=== PATIENT | female | born 1945 | race Caucasian/White ===

== ENCOUNTER 2020-03-08 19:30 | Inpatient (IN) | payer MEDICARE, OTHER ==
[~2020-03-08] VITALS: Ht 162.6 cm; Wt 81.7 kg
[~2020-03-08 19:30] MED LIST: ALBU90OI61 INH; AMLO10 PO; CALCA400CH PO; DEXA4 PO; HYDR1TAB94 PO; Hair, Skin & N1 EACH PO; LISI20 PO; METO10 PO; METO50 PO; NYST100000; Nicoderm Cq1 EAC1 TD; OLAN10 PO; SYMBICORT 80-10.2 GM INH; TIOT18 INH; XOLIDO118 ML TOP; ZOLP5 PO; Zofran8 MG PO
[2020-03-08 20:07] LABS: BASOPHILS ABSOLUTE AUTO 0.02 K/mm3 (0.00-0.23); BASOPHILS PERCENT AUTO 1 % (0-2); EOSINOPHILS PERCENT AUTO 0 % (0-6); Hematocrit 38.4 % (33.0-51.0); Hemoglobin 12.8 g/dL (11.5-16.0); IMMATURE GRAN ABSOLUTE AUTO 0.01 K/mm3 (0.00-0.10); IMMATURE GRAN PERCENT AUTO 0 % (0-1); LYMPHOCYTES PERCENT AUTO 32 % (21-46); MONOCYTES ABSOLUTE AUTO 0.37 K/mm3 (0.16-1.47); MONOCYTES PERCENT AUTO 10 % (4-13); Mean Corpuscular HGB 30.7 pg (26.0-34.0); Mean Corpuscular HGB Conc 33.3 g/dL (31.5-36.5); Mean Corpuscular Volume 92 fL (80-100); Mean Platelet Volume 10.9 fL (9.1-12.4); NEUTROPHILS ABSOLUTE AUTO 2.11 K/mm3 (1.96-9.15); NEUTROPHILS PERCENT AUTO 57 % (41-73); Platelet Count 98 K/mm3 (150-400); RDW Coefficient Variation 13.5 % (11.7-14.2); RDW Standard Deviation 46.5 fL (35.1-46.3); Red Blood Cell Count 4.17 M/mm3 (3.80-5.20); White Blood Cell Count 3.71 K/mm3 (4.00-11.30)
[2020-03-08 20:24] LABS: Albumin, Blood 3.3 g/dL (3.4-5.0); Albumin/Globulin Ratio 0.9 (0.8-1.8); Bilirubin, Total 0.4 mg/dL (0.1-1.0); Bun/Creatinine Ratio 19.5 (12.0-20.0); Calcium, Blood 8.5 mg/dL (8.5-10.1); Creatinine, Blood 1.23 mg/dL (0.40-1.00); Globulin, Blood 3.7 g/dL (2.2-4.0); Potassium, Blood 3.7 mmol/L (3.5-5.5)
[2020-03-08 21:57] LABS: Source, Urine Clean Catch
[2020-03-08 22:01] LABS: Bilirubin, Urine Neg (Neg); Blood, Urine 4+ (Neg); Glucose Qualitative, Urine Neg (Neg); Ketones, Urine 2+ (Neg); Leukocyte Esterase, Urine Neg (Neg); Nitrite, Urine Neg (Neg); Protein, Urine 2+ (Neg); Urobilinogen, Urine NORM (Normal)
[2020-03-08 22:04] LABS: Appearance, Urine Clear (Clear); Color, Urine Yellow (P-Yellow)
[2020-03-08 22:08] LABS: Red Blood Cells, Urine 0-2 /hpf (0-2); White Blood Cells, Urine 0-2 /hpf (0-5)
[2020-03-08 22:09] LABS: Amorphous Light (0-Heavy); Bacteria Few /hpf; Squamous Epithelial Cells Rare /hpf (Few)
[2020-03-08 22:29] LABS: Adenovirus Not Detected (NOT DETECT); Bordetella pertussis Not Detected (NOT DETECT); Chlamydophila pneumoniae Not Detected (NOT DETECT); Coronavirus 229E Not Detected (NOT DETECT); Coronavirus HKU1 Not Detected (NOT DETECT); Coronavirus NL63 Not Detected (NOT DETECT); Coronavirus OC43 Not Detected (NOT DETECT); Human Metapneumovirus Not Detected (NOT DETECT); Human Rhinovirus/Enterovirus Not Detected (NOT DETECT); Influenza A/2009-H1 Not Detected (NOT DETECT); Influenza A/H1 Not Detected (NOT DETECT); Influenza A/H3 Not Detected (NOT DETECT); Influenza B Not Detected (NOT DETECT); Mycoplasma pneumoniae Not Detected (NOT DETECT); Parainfluenza Virus 1 Not Detected (NOT DETECT); Parainfluenza Virus 2 Not Detected (NOT DETECT); Parainfluenza Virus 3 Not Detected (NOT DETECT); Parainfluenza Virus 4 Not Detected (NOT DETECT); Respiratory Syncytial Virus Not Detected (NOT DETECT); SARS-Cov-2 (COVID-19), BioFire Detected (NOT DETECT)
--- NOTE | 2020-03-09 04:21 | NUR ---
MOBILE APPLICATION DEVELOPMENT LEAD SUMMARY A/OX2. DROPLET PRECAUTIONS IN PLACE FOR COVID. PT SEEMS PLEASANTLY CONFUSED. CURRENTLY ON ROOM AIR. HAS APPEARED TO SLEEP SINCE ADMISSION. VSS. NO ACUTE DISTRESS AT THIS TIME. BED IN LOWEST POSITION WITH CALL LIGHT IN REACH. WILL CONTINUE TO MONITOR AND REPORT TO ONCOMING RN.
[2020-03-09 05:50] LABS: BASOPHILS ABSOLUTE AUTO 0.01 K/mm3 (0.00-0.23); BASOPHILS PERCENT AUTO 0 % (0-2); EOSINOPHILS PERCENT AUTO 0 % (0-6); Hematocrit 39.4 % (33.0-51.0); IMMATURE GRAN ABSOLUTE AUTO 0.01 K/mm3 (0.00-0.10); IMMATURE GRAN PERCENT AUTO 0 % (0-1); LYMPHOCYTES ABSOLUTE AUTO 1.04 K/mm3 (0.84-5.20); LYMPHOCYTES PERCENT AUTO 29 % (21-46); MONOCYTES ABSOLUTE AUTO 0.33 K/mm3 (0.16-1.47); MONOCYTES PERCENT AUTO 9 % (4-13); Mean Corpuscular HGB 30.4 pg (26.0-34.0); Mean Corpuscular Volume 92 fL (80-100); Mean Platelet Volume 10.3 fL (9.1-12.4); NEUTROPHILS ABSOLUTE AUTO 2.25 K/mm3 (1.96-9.15); NEUTROPHILS PERCENT AUTO 62 % (41-73); Platelet Count 102 K/mm3 (150-400); RDW Coefficient Variation 13.6 % (11.7-14.2); RDW Standard Deviation 46.2 fL (35.1-46.3); Red Blood Cell Count 4.28 M/mm3 (3.80-5.20); White Blood Cell Count 3.64 K/mm3 (4.00-11.30)
[2020-03-09 06:06] LABS: Albumin, Blood 3.3 g/dL (3.4-5.0); Albumin/Globulin Ratio 0.9 (0.8-1.8); Bilirubin, Total 0.4 mg/dL (0.1-1.0); Bun/Creatinine Ratio 21.8 (12.0-20.0); Calcium, Blood 8.2 mg/dL (8.5-10.1); Creatinine, Blood 1.01 mg/dL (0.40-1.00); Globulin, Blood 3.5 g/dL (2.2-4.0); Potassium, Blood 3.9 mmol/L (3.5-5.5); Total Protein, Blood 6.8 g/dL (6.4-8.2)
--- NOTE | 2020-03-09 08:01 | NUR ---
PATIENT WITH TEMP 102.2, SHAKING CHILLS. DENIES PAIN AT THIS TIME. NO ACTIVWE ORDER FOR TYLENOL. CALLED DR. EDGAR TO NOTIFY OF TMEP AND ORDER FOR TYLENOL. NO ANSWER, LEFT VM.
[2020-03-09] MEDS ORDERED: LETR2.5 PO (11:57)
--- NOTE | 2020-03-09 15:48 | NUR ---
ASSUMED CARE OF PATIENT UPON HER ARRIVAL FROM PCU AT 1435. PT IS A&O X 4, PORTER. STATED PAIN AND ANXIETY ARE WELL CONTROLLED AT THIS TIME, HAD JUST TAKEN MEDICATIONS PRIOR TO TRANSFER. SON IS AT BEDSIDE; THEY ARE DISCUSSING HOSPICE PREPARATIONS. OFFERED WARM WARSHCLOTH TO WASH HER FACE AND GAVE HER ORAL CARE SUPPLIES. STATED SHE IS COMFORTABLE AT THIS TIME.
--- NOTE | 2020-03-09 19:50 | NUR ---
SHIFT SUMMARY: T MAX 103.3, TYLENOL PARTIALLY EFFECTIVE. BLOOD CULTURES X 2 DRAWN THIS EVENING. A&O X 2, INTERMITTENT CONFUSION, VERY [place]. NO EVENTS ON TELEMETRY, SR-ST 70-105. INSURANCE LOSS ADJUSTER, OCCASIONAL COUGH. COMPLETED IVF. CONTINENT/INCONTINENT OF B&B, WEARING ATTENDS. APPETITE POOR, TAKING < 50% OF MEALS, NEEDS ENCOURAGEMENT TO TAKE PO FLUIDS. DENIED PAIN. DAUGHTER IS ARRIVING FROM [place], WILL VISIT IN THE MORNING. SPOKE TO HER ON THE PHONE EARLIER TODAY, SHE HAD MANY QUESTIONS ABOUT TREATMENT. SHE WILL NEED SENIOR RESOURCES TO GET PT EXTRA HELP AT HOME.
[2020-03-10 05:45] LABS: BASOPHILS ABSOLUTE AUTO 0.01 K/mm3 (0.00-0.23); BASOPHILS PERCENT AUTO 0 % (0-2); EOSINOPHILS PERCENT AUTO 0 % (0-6); Hemoglobin 11.8 g/dL (11.5-16.0); IMMATURE GRAN ABSOLUTE AUTO 0.01 K/mm3 (0.00-0.10); IMMATURE GRAN PERCENT AUTO 0 % (0-1); LYMPHOCYTES ABSOLUTE AUTO 0.45 K/mm3 (0.84-5.20); LYMPHOCYTES PERCENT AUTO 14 % (21-46); MONOCYTES ABSOLUTE AUTO 0.11 K/mm3 (0.16-1.47); MONOCYTES PERCENT AUTO 4 % (4-13); Mean Corpuscular HGB 30.4 pg (26.0-34.0); Mean Corpuscular HGB Conc 33.7 g/dL (31.5-36.5); Mean Corpuscular Volume 90 fL (80-100); Mean Platelet Volume 10.8 fL (9.1-12.4); NEUTROPHILS ABSOLUTE AUTO 2.57 K/mm3 (1.96-9.15); NEUTROPHILS PERCENT AUTO 82 % (41-73); Platelet Count 90 K/mm3 (150-400); RDW Coefficient Variation 13.3 % (11.7-14.2); RDW Standard Deviation 44.3 fL (35.1-46.3); Red Blood Cell Count 3.88 M/mm3 (3.80-5.20); White Blood Cell Count 3.15 K/mm3 (4.00-11.30)
[2020-03-10 06:02] LABS: Bun/Creatinine Ratio 18.9 (12.0-20.0); Calcium, Blood 7.9 mg/dL (8.5-10.1); Creatinine, Blood 1.06 mg/dL (0.40-1.00); Potassium, Blood 3.7 mmol/L (3.5-5.5)
--- NOTE | 2020-03-10 06:26 | NUR ---
BASKETBALLS AND FOOTBALLS REVERSER SUMMARY Patient had a difficult time sleeping overnight. Most of her night was spent with shaking chills. Even when her temp dropped to 99.3F. Most of night however, she battled temps from 99.9 to 102.9. In addition to toradol dose at 1830, She was given APAP at 2330, Toradol around 0420 with minimal change from 102.9 to 102.6. Raymond was removed and patient encouraged to drink water. No complaints of pain or discomfort overnight other that chills. Blood cultures still outstanding.
--- NOTE | 2020-03-10 15:02 | NUR ---
GAVE PATIENT TYLENOL AT 1449 PATIENT IS SHAKING, HAS A FEVER OF 102.9 AND NOT FEELING WELL. SHE IS SHAKING SO BAD IT IS HARD TO GET A TEMP ON HER. I DID STRIP HER BLANKETS AND GIVE HER SOME WATER. SHE ALSO HAS HER ORAL CONTRAST TO DRINK. WILL MONITOR CLOSELY.
--- NOTE | 2020-03-10 18:09 | NUR ---
SHIFT SUMMARY PATIENT IS ALERT TO SELF AND PLACE. SHE DOES NOT UNDERSTAND WHY SHE IS ON OXYGEN EVEN THOUGH SHE IS HYPOXIC. SHE IS CURRENTLY RUNNING ON 2L AT 90%. WE ARE ABOUT TO TURN HER OXYGEN TO 3L TO GET HER TO 92% PER DOCTORS ORDERS. SHE IS TO HAVE A CT OF HEAD, ABDOMEN, PELVIS. SHE IS REFUSING TO DRINK THE REST OF HER CONTRAST. I AM AWAITING TO HEARD BACK FROM CT. SHE STATES THAT SHE IS DOING OKAY. SHE STATES SHE IS NOT SHORT OF BREATH EVEN THOUGH SHE HAS LOW SATURATIONS. SHE ALSO STATES THAT SHE IS NOT SHORT OF BREATH WHEN HER RESPIRATION RATE INCREASES. SHE HAS FOUGHT A HIGH FEVER ALL DAY TODAY AND THERE IS A BOTTLE OF IV LABETALOL IN HER ROOM. HER BLOOD PRESSURE WAS TOO LOW TO SAFELY GIVE HER BP MEDICATIONS. SHE HAS NOW HAD THEM ADJUSTED AND SHE WILL GET THE NEW REGIMEN IN THE MORNING. SHE IS NOW ON ANTIBIOTICS AND WAS GIVEN A NEW IV TODAY DUE TO HERS INFILTRATING. SHE HAS A 20G IN THE R FOREARM, AND THIS IS CONNECTED TO CONTINUOUS FLUIDS. SHE IS ON NORMAL SALINE AT 75 AN HOUR.
--- NOTE | 2020-03-10 19:20 | NUR ---
Notified Sandra in [place] that patient was ready to be picked up.
[2020-03-11 00:06] LABS: ADENOVIRUS F 40/41 Not Detected (Not Detected); ASTROVIRUS Not Detected (Not Detected); C DIFFICILE TOXIN A/B Not Detected (Not Detected); CAMPYLOBACTER Not Detected (Not Detected); CRYPTOSPORIDIUM Not Detected (Not Detected); CYCLOSPORA CAYETANENSIS Not Detected (Not Detected); ENTAMOEBA HISTOLYTICA Not Detected (Not Detected); ENTEROAGGREGATIVE E COLI Not Detected (Not Detected); ENTEROPATHOGENIC E COLI Detected (Not Detected); ENTEROTOXIGENIC E COLI Not Detected (Not Detected); GIARDIA LAMBLIA Not Detected (Not Detected); NOROVIRUS GI/GII Not Detected (Not Detected); PLESIOMONAS SHIGELLOIDES Not Detected (Not Detected); ROTAVIRUS A Not Detected (Not Detected); SALMONELLA Not Detected (Not Detected); SAPOVIRUS Not Detected (Not Detected); SHIGA-TOXIN-PRODUCING E COLI Not Detected (Not Detected); SHIGELLA/ENTEROINVASIVE E COLI Not Detected (Not Detected); VIBRIO Not Detected (Not Detected); VIBRIO CHOLERAE Not Detected (Not Detected); YERSINIA ENTEROCOLITICA Not Detected (Not Detected)
--- NOTE | 2020-03-11 02:11 | NUR ---
Patient temp back up to 103.5. Again, she is shaking uncontrollably. HR sustaining 115-120's. Blood pressure is actually more stable currently than yesteray day shift or evening. notified. Patient tolerating ice packs and was given norco (with tylenol) as well as 10 mg labetolol. New order from for Toradol and one time ibuprophen. will continue close monitoring
[2020-03-11 06:02] LABS: BASOPHILS ABSOLUTE AUTO 0.01 K/mm3 (0.00-0.23); BASOPHILS PERCENT AUTO 0 % (0-2); EOSINOPHILS PERCENT AUTO 0 % (0-6); Hematocrit 36.5 % (33.0-51.0); Hemoglobin 12.1 g/dL (11.5-16.0); IMMATURE GRAN ABSOLUTE AUTO 0.04 K/mm3 (0.00-0.10); IMMATURE GRAN PERCENT AUTO 1 % (0-1); LYMPHOCYTES PERCENT AUTO 9 % (21-46); MONOCYTES ABSOLUTE AUTO 0.11 K/mm3 (0.16-1.47); MONOCYTES PERCENT AUTO 3 % (4-13); Mean Corpuscular HGB 30.6 pg (26.0-34.0); Mean Corpuscular HGB Conc 33.2 g/dL (31.5-36.5); Mean Corpuscular Volume 92 fL (80-100); Mean Platelet Volume 10.9 fL (9.1-12.4); NEUTROPHILS ABSOLUTE AUTO 3.69 K/mm3 (1.96-9.15); NEUTROPHILS PERCENT AUTO 87 % (41-73); Platelet Count 101 K/mm3 (150-400); RDW Coefficient Variation 13.7 % (11.7-14.2); RDW Standard Deviation 46.8 fL (35.1-46.3); Red Blood Cell Count 3.96 M/mm3 (3.80-5.20); White Blood Cell Count 4.25 K/mm3 (4.00-11.30)
[2020-03-11 06:27] LABS: Albumin, Blood 2.5 g/dL (3.4-5.0); Albumin/Globulin Ratio 0.7 (0.8-1.8); Bilirubin, Total 0.4 mg/dL (0.1-1.0); Bun/Creatinine Ratio 19.4 (12.0-20.0); Calcium, Blood 7.6 mg/dL (8.5-10.1); Creatinine, Blood 1.08 mg/dL (0.40-1.00); Globulin, Blood 3.7 g/dL (2.2-4.0); Potassium, Blood 4.1 mmol/L (3.5-5.5); Total Protein, Blood 6.2 g/dL (6.4-8.2)
--- NOTE | 2020-03-11 09:23 | NUR ---
PATIENT ALERT AND ORIENTED. SATS 88-91% ON 7L NC. PT SITTING UP AT [address] EDGAR NOTIFIED OF INCREASED O2 NEEDS OVERNIGHT. ORDERS RECIEVED. TXFR TO ICU IN PROGRESS. LASIX GIVEN.
--- NOTE | 2020-03-11 09:58 | NUR ---
SBAR REPORT TO CHER LO IN ICU
--- NOTE | 2020-03-11 10:42 | NUR ---
PT ADMITTED TO ICU PCU STATUS PT FROM [facility] FOR INCREASING 02 NEEDS 2ND TO COVID 19. PT ARRIVES AWAKE, FLAT AFFECT. ORIENTED X3 BUT SLOW TO ANSWER QUESTIONS. PT DENIES C/O PAIN, DENIES SOB. SATS 90% ON 7L VIA OXYMIZER. FINE CRACKLES TO BASES, DIM, CLEAR OTHERWISE. PT [place], LEFT SIDE WORSE. BP SLIGHTLY HYPOTENSIVE AT 98/60 W MAP 77; PT WAS GIVEN LASIX THIS AM FOR SOME FLUID OVERLOAD BY EVIDENCE ON CT. PT IS AFEBRILE BUT WARM TO THE TOUCH. DR ROUSE CONSULTED; DR ESPINAL.
--- NOTE | 2020-03-11 12:50 | NUR ---
PT WATCHING TV W/O COMPLAINTS. O2 INCREASED TO 9L FOR SATS 88-90%. PT DENIES SOB. DR ROUSE UPDATED; PT TO BE PLACED ON HIGH VIN IF AVAILABLE. WILL ATTEMPT MODIFIED PRONE POSITION IF PT TOLERATES. PT REFUSED LUNCH BUT IS DRINKING DECAF COFFEE AND WATER W/O INCIDENT.
--- NOTE | 2020-03-11 15:03 | NUR ---
PT CHANGED TO HIGH VIN O2 AT 25L 50%FIO2. PT ABLE TO REQUEST BEDPAN TO VOID. PT CONT TO WATCH TV W/O COMPLAINTS. PT DOES DESATURATE WHILE SPEAKING DOWN TO 88%. PT'S DAUGHTER GIVEN UPDATE W PT'S PERMISSION.
--- NOTE | 2020-03-11 16:27 | NUR ---
PT DRINKS SOCIALLY AT THE BAR "[id number]" REGULARLY. PT STATES SHE DRINKS AT HOME BUT AVOIDED/EVADED ANSWERING TO WHAT DEGREE SHE DRINKS AT HOME. SHE DID STATE THAT SHE DRINKS [employer] (BEER W [employer]OM[employer]). DR ROUSE UPDATED. PT STATES THAT SHE WENT TO THE BAR ON THU, WENT AGAIN ON THURSDAY, AND STARTED TO FEEL SICK THURSDAY. SHE THEN STATED THAT SHE HAD DIARRHEA AND NAUSEA FROM THEN ON. HER DAUGHTER CALLED TO CHECK ON HER FROM [place] AND CALLED 911 AFTER DISCOVERING THAT SHE WAS SICK.
--- NOTE | 2020-03-11 19:45 | NUR ---
ATTEMPTED POWERGLIDE TO KLEBER, UNABLE TO PLACE. PT W SEVERE UPPER EXT TREMORS. DR EDGAR CALLED AND NOTIFIED. CIWA PROTOCOL ORDERED. O2 REQUIREMENTS UNCHANGED. PT WITH POOR APPETITE BUT DRINKING SUFFICIANT LIQUIDS.
--- NOTE | 2020-03-11 19:45 | NUR ---
SHIFT ASSESSMENT PT A&OX4, AT TIMES DIFFICULT TO UNDERSTAND/ SLOW TO RESPOND. ON AIRVO CURRENTLY c O2 SATS RANGING FROM 88-92%. LS DIMINISHED THROUGHOUT. DOES NOT C/O SHORTNESS OF BREATH. SINUS/SINUS TACH ON THE RAILROAD EMERGENCY SERVICES MANAGER. BP STABLE. BEDPAN PROVIDED, PT COULD NOT VOID, BECAME EXTREMELY SHORT OF BREATH, SATS DECREASED TO THE LOW 70'S WHILE TURNING TO PLACE BEDPAN. WILL CONTINUE TO MONITOR CLOSELY.
[2020-03-11 23:34] LABS: Source, Urine Catheter
[2020-03-11 23:49] LABS: Bilirubin, Urine Neg (Neg); Blood, Urine 4+ (Neg); Glucose Qualitative, Urine Neg (Neg); Ketones, Urine 3+ (Neg); Leukocyte Esterase, Urine Neg (Neg); Nitrite, Urine Neg (Neg); Protein, Urine 3+ (Neg); Specific Gravity, Urine 1.015 (1.003-1.022); Urobilinogen, Urine NORM (Normal)
[2020-03-12 00:04] LABS: Appearance, Urine Clear (Clear); Color, Urine Yellow (P-Yellow)
[2020-03-12 00:05] LABS: Amorphous Light (0-Heavy); Bacteria Not Seen /hpf; Red Blood Cells, Urine Rare /hpf (0-2); Squamous Epithelial Cells Not Seen /hpf (Few); White Blood Cells, Urine Not Seen /hpf (0-5)
[2020-03-12 04:13] LABS: Hematocrit 35.9 % (33.0-51.0); Hemoglobin 11.7 g/dL (11.5-16.0); Mean Corpuscular HGB 29.4 pg (26.0-34.0); Mean Corpuscular HGB Conc 32.6 g/dL (31.5-36.5); Mean Corpuscular Volume 90 fL (80-100); Platelet Count 107 K/mm3 (150-400); RDW Coefficient Variation 13.6 % (11.7-14.2); RDW Standard Deviation 45.7 fL (35.1-46.3); Red Blood Cell Count 3.98 M/mm3 (3.80-5.20); White Blood Cell Count 4.04 K/mm3 (4.00-11.30)
[2020-03-12 04:32] LABS: Alanine Aminotransfer (ALT/SGP 23 U/L (12-78); Albumin, Blood 2.2 g/dL (3.4-5.0); Albumin/Globulin Ratio 0.6 (0.8-1.8); Alk Phos 33 U/L (50-136); Anion Gap 7 mmol/L (6-16); Aspartate Aminotrans (AST/SGOT 55 U/L (12-37); BAND PERCENT MAN 24 % (0-8); BASOPHILS PERCENT MAN 0 % (0-2); Bilirubin, Total 0.3 mg/dL (0.1-1.0); Blood Urea Nitrogen 22 mg/dL (8-24); Bun/Creatinine Ratio 25.1 (12.0-20.0); CO2, Blood 22 mmol/L (21-32); Calcium, Blood 7.5 mg/dL (8.5-10.1); Chloride, Blood 110 mmol/L (98-108); Creatinine, Blood 0.88 mg/dL (0.40-1.00); EOSINOPHILS PERCENT MAN 0 % (0-6); Globulin, Blood 3.6 g/dL (2.2-4.0); Glomerular Filtration Rate >60 (60-); Glucose, Blood 190 mg/dL (70-99); LYMPHOCYTES ABSOLUTE MAN 0.12 K/mm3 (0.84-5.20); LYMPHOCYTES PERCENT MAN 3 % (21-46); MONOCYTES ABSOLUTE MAN 0.08 K/mm3 (0.16-1.47); MONOCYTES PERCENT MAN 2 % (4-13); Magnesium, Blood 2.4 mg/dL (1.6-2.4); NEUTROPHILS ABSOLUTE MAN 3.83 K/mm3 (1.96-9.15); Phosphorus, Blood 1.5 mg/dL (2.5-4.9); Potassium, Blood 3.3 mmol/L (3.5-5.5); SEG NEUTROPHILS PERCENT MAN 71 % (41-73); Sodium, Blood 139 mmol/L (136-145); TOTAL CELLS COUNTED 100; Total Protein, Blood 5.8 g/dL (6.4-8.2)
--- NOTE | 2020-03-12 05:27 | NUR ---
SHIFT SUMMARY PT CONTINUES TO BE ALERT AND ORIENTED. SHE DID HAVE INTERMITTENT BOUTS OF MILD CONFUSION, BELIEVING IT WAS DAYTIME, BUT STILL KNEW YEAR, PLACE, AND NAME. PT ATTEMPTS TO ASSIST WHEN TURNING/ USING BEDPAN, QUICKLY BECOMES HYPOXIC. LS REMAIN DIMINISHED. AIRVO SETTINGS INCREASED TO 40L/72%FIO2 c 02 SATS IN LOW 90'S. SINUS/SINUS TACH WITH PVC'S T/O THE NIGHT. TEMP SERNA CATH DRAINING YELLOW URINE. TEMP INCREASED TO 103, TREATED c PRN TYLENOL. WILL CONTINUE TO MONITOR.
--- NOTE | 2020-03-12 08:20 | NUR ---
ASSESSMENT- PT AWAKE, ALERT, COOPERATIVE. VERY [place], SOME CONFUSION. ABLE TO STATE NAME, FOLLOW SOME DIRECTIONS, KNOWS SHE IS IN HOSPITAL. ON HIGH FLOW OXYGEN-DESATURATES TO 85% WITH ANY ACTIVITY. REFUSED TO PRONE POSITION BUT WAS ABLE TO REPOSITION TO HIGH LEFT SIDE AND IMPROVEMENT NOTED IN SATURATIONS. STATES NO APPETITE. IV KPHOS REPLACEMENT INFUSING. DR. EDGAR HERE-UPDATED. SINUS RHYTHM WITH PVCS. NO N/V. INCONTINENT OF LIQUID STOOL-SAMPLE SENT. LINEN CHANGE. ENHANCED PRECAUTIONS IN EFFECT.
--- NOTE | 2020-03-12 09:56 | NUR ---
DR LOZA HERE-ASSESSED PT. SATURATIONS IMPROVED WHEN LAYING ON SIDE. AERVO CHANGES.
--- NOTE | 2020-03-12 11:09 | NUR ---
PT'S DAUGHTER CALLED-UPDATED. REPOSITIONED PT, NEED TO INCREASE FI02 TO 65% TO MAINTAIN SATURATIONS. ABLE TO USE [employer] TO CALL GRANDDAUGHTER. LUNGS COARSE, CRACKLES BIBASILAR.OCCASIONAL COUGH
--- NOTE | 2020-03-12 12:35 | NUR ---
PT STOOD AT BEDSIDE WITH ASSISTANCE, MOVES WEAKLY, WALKED FEW STEPS, TRANSFER TO CHAIR. OXYGEN SATURATIONS DECREASED TO 84% WITH ACTIVITY, RECOVERED WITHIN MINUTES. ALSO TACHY WITH MOVEMENT-HEARTRATE UP TO 120'S. AWAKE, ABLE TO FOLLOW DIRECTIONS.
--- NOTE | 2020-03-12 14:26 | NUR ---
PT REMAINS UP IN CHAIR. POOR APPETITE, ASSISTED WITH MEAL BUT ONLY FEW BITES TAKEN, WAS ABLE TO DRINK ENSURE. TOLERATING HIGH FLOW OXYGEN. DR. LOZA HERE-UPDATED.
--- NOTE | 2020-03-12 14:44 | NUR ---
C/O BEING UNCOMFORTABLE IN CHAIR, ABLE TO STAND TO REPOSITION IN CHAIR, USED PILLOWS WITH IMPROVEMENT. OXYGEN SATURATIONS DECREASED TO 79% WITH BRIEF ACTIVITY, RECOVERED IN MINUTES. WATCHING TV, DENIES PAIN. STATES BREATHING IS EASIER
--- NOTE | 2020-03-12 15:59 | NUR ---
C/O HEADACHE, RX GIVEN. ASSISTED TO REPOSITION IN CHAIR. VSS
--- NOTE | 2020-03-12 17:50 | NUR ---
PT HAD PULLED AERVO FROM NOSE, STATES DOESN'T FEEL WELL. DIAPHORETIC, HYPOTENSIVE. OXYGEN SATURATIONS QUICKLY DECREASED TO 74%. USED LIFT TO TRANSFER TO BED. PT AWAKE, ALERT THRU EPISODE. VS IMPROVED WHEN BACK TO BED, SINUS RHYTHM. REPOSITIONED TO HIGH LEFT SIDE. UPDATE TO . WILL CONTINUE TO MONITOR. NOW TALKING ON PHONE WITH FAMILY
--- NOTE | 2020-03-12 18:33 | NUR ---
PT WITH STABLE VS. SLEEPING, RESPIRATIONS UNLABORED, TOLERATING AERVO AT 50 L/MIN 60% CONTINUE TO MONITOR
--- NOTE | 2020-03-12 20:10 | NUR ---
PATIENT REPOSITIONING SELF OFF OF PILLOWS FROM LEFT SIDE, BIOX DOWN TO 80% WITH THE EFFORT. PATIENT ASSISTED UP IN BED AND TO HER RIGHT SIDE, AIRVO IN PLACE SET AT 60L FIO2 80%. MOIST COUGH UNABLE TO PRODUCE SPUTUM. BIOX UP TO 93% WHILE RESTING. PATIENT INCONT OF LOOSE BROWN STOOL, DRY FLOW PAD CHANGED AND CREAM PLACED TO RED AREA ON BUTTOCKS. A&O X3 BUT HO-CHUNK.
[2020-03-13 04:56] LABS: BASOPHILS ABSOLUTE AUTO 0.01 K/mm3 (0.00-0.23); BASOPHILS PERCENT AUTO 0 % (0-2); EOSINOPHILS PERCENT AUTO 0 % (0-6); Hematocrit 33.4 % (33.0-51.0); Hemoglobin 11.5 g/dL (11.5-16.0); IMMATURE GRAN ABSOLUTE AUTO 0.04 K/mm3 (0.00-0.10); IMMATURE GRAN PERCENT AUTO 1 % (0-1); LYMPHOCYTES ABSOLUTE AUTO 0.54 K/mm3 (0.84-5.20); LYMPHOCYTES PERCENT AUTO 10 % (21-46); MONOCYTES PERCENT AUTO 4 % (4-13); Mean Corpuscular HGB 31.2 pg (26.0-34.0); Mean Corpuscular HGB Conc 34.4 g/dL (31.5-36.5); Mean Corpuscular Volume 91 fL (80-100); Mean Platelet Volume 10.8 fL (9.1-12.4); NEUTROPHILS ABSOLUTE AUTO 4.55 K/mm3 (1.96-9.15); NEUTROPHILS PERCENT AUTO 85 % (41-73); Platelet Count 148 K/mm3 (150-400); RDW Standard Deviation 46.7 fL (35.1-46.3); Red Blood Cell Count 3.69 M/mm3 (3.80-5.20); White Blood Cell Count 5.34 K/mm3 (4.00-11.30)
[2020-03-13 05:15] LABS: Anion Gap 5 mmol/L (6-16); Blood Urea Nitrogen 23 mg/dL (8-24); Bun/Creatinine Ratio 26.1 (12.0-20.0); CO2, Blood 25 mmol/L (21-32); Calcium, Blood 7.2 mg/dL (8.5-10.1); Chloride, Blood 112 mmol/L (98-108); Creatinine, Blood 0.88 mg/dL (0.40-1.00); Glomerular Filtration Rate >60 (60-); Glucose, Blood 173 mg/dL (70-99); Phosphorus, Blood 2.1 mg/dL (2.5-4.9); Potassium, Blood 3.7 mmol/L (3.5-5.5); Sodium, Blood 142 mmol/L (136-145)
--- NOTE | 2020-03-13 05:43 | NUR ---
SUMMARY PATIENT RESTING QUIETLY T/O NIGHT, WITH AIRVO IN PLACE SET AT 60L AND 80%. AWAKENS EASILY ASSISTING WITH REPOSITIONING. SOB WITH ACTIVITY WITH BIOX DOWN TO 86%, SLOWLY RECOVERING TO 93% WHILE SLEEPING. HARSH MOIST NONPRODUCTIVE COUGH CONTINUES. PATIENT INCONT OF LOOSE BROWN BM, IMODIUM GIVEN, STOOL FIRMER NIGHT HAS PROGRESSED. COVID ISOLATION CONTINUES WITH NEGATIVE PRESSURE ROOM INDICATOR SHOWING NEGATIVE PRESSURE TO ROOM.
--- NOTE | 2020-03-13 08:30 | NUR ---
ASSESSMENT- PT AWAKE, ALERT, COOPERATIVE. VERY [place], ABLE TO RESPOND APPROPRIATELY TO QUESTIONS. STATES BREATHING "SOMEWHAT" BETTER TODAY. HIGHER FLOW OXYGEN TO MAINTAIN SATURATIONS TODAY-ON AERVO 60L/MIN 80%. LUNGS COARSE WITH FAINT CRACKLES BIBASILAR. NSR. BP STABLE. PIV LAC INTACT, RIGHT UPPER ARM MIDLINE INTACT. ABDOMEN SOFT, NO N/V. STATES NOT HUNGRY. ENCOURAGED FOOD. UP TO CHAIR WITH TWO ASSIST, DID BETTER WITH TRANSFER TODAY. INCONTINENT SMALL AMOUNT LIQUID STOOL. PERICARE DONE, AREA REDDENED, TENDER. LOTION APPLIED. UO VIA SERNA. IV NS TKO, KPHOS REPLACEMENT.
[2020-03-13 12:00] LABS: ADENOVIRUS F 40/41 Not Detected (Not Detected); ASTROVIRUS Not Detected (Not Detected); C DIFFICILE TOXIN A/B Not Detected (Not Detected); CAMPYLOBACTER Not Detected (Not Detected); CRYPTOSPORIDIUM Not Detected (Not Detected); CYCLOSPORA CAYETANENSIS Not Detected (Not Detected); ENTAMOEBA HISTOLYTICA Not Detected (Not Detected); ENTEROAGGREGATIVE E COLI Not Detected (Not Detected); ENTEROPATHOGENIC E COLI Detected (Not Detected); ENTEROTOXIGENIC E COLI Not Detected (Not Detected); GIARDIA LAMBLIA Not Detected (Not Detected); NOROVIRUS GI/GII Not Detected (Not Detected); PLESIOMONAS SHIGELLOIDES Not Detected (Not Detected); ROTAVIRUS A Not Detected (Not Detected); SALMONELLA Not Detected (Not Detected); SAPOVIRUS Not Detected (Not Detected); SHIGA-TOXIN-PRODUCING E COLI Not Detected (Not Detected); SHIGELLA/ENTEROINVASIVE E COLI Not Detected (Not Detected); VIBRIO Not Detected (Not Detected); VIBRIO CHOLERAE Not Detected (Not Detected); YERSINIA ENTEROCOLITICA Not Detected (Not Detected)
--- NOTE | 2020-03-13 12:50 | NUR ---
PT UP IN CHAIR, ABLE TO STAND WITH WALKER AND CHANGED LINEN. STATES FEELING BETTER. OXYGEN LEVEL IMPROVED. DECREASED FI02 TO 70%
--- NOTE | 2020-03-13 18:15 | NUR ---
DR. LOZA HERE-UPDATED. PT WITH STABLE VS. REPOSITIONED. C/O RIGHT HIP PAIN-IMPROVED WITH TURN TO LEFT. TURNING SIDE TO SIDE HIGH LATERAL POSITION. SMALL AMOUNT LIQUID STOOL. REFUSED DINNER. NO N/V. STATES NO APPETITE. CONTINUE TO MONITOR. IV BANANA BAG INFUSING, POWER GLIDE, PIV INTACT.
--- NOTE | 2020-03-13 20:00 | NUR ---
PATIENT AWAKE WATCHING TV, C/O HIP PAIN. TYLENOL PO GIVEN. PATIENT ASSISTING WITH REPOSITIONING IN BED SOB AND BIOX DROPPING TO MOW 80'S WITH ACTIVITY. AIRVO IN PLACE 50 L AND FIO2 CHANGED FROM 55% TO 79% GOAL OF BIOX >86%. PATIENT CONTINUES TO HAVE OCCASIONAL INCONT OF LOOSE BROWN STOOL. CREAM PLACED TO REDNESS AROUND RECTAL AREA. COVID ISOLATION CONTINUES WITH NEGATIVE PRESSURE ROOM INDICATOR SHOWING NEGATIVE PRESSURE TO ROOM.
[2020-03-14 03:50] LABS: BASOPHILS PERCENT AUTO 0 % (0-2); EOSINOPHILS PERCENT AUTO 0 % (0-6); Hematocrit 34.8 % (33.0-51.0); Hemoglobin 11.8 g/dL (11.5-16.0); IMMATURE GRAN ABSOLUTE AUTO 0.05 K/mm3 (0.00-0.10); IMMATURE GRAN PERCENT AUTO 1 % (0-1); LYMPHOCYTES ABSOLUTE AUTO 0.62 K/mm3 (0.84-5.20); LYMPHOCYTES PERCENT AUTO 8 % (21-46); MONOCYTES PERCENT AUTO 4 % (4-13); Mean Corpuscular HGB 30.4 pg (26.0-34.0); Mean Corpuscular HGB Conc 33.9 g/dL (31.5-36.5); Mean Corpuscular Volume 90 fL (80-100); Mean Platelet Volume 10.2 fL (9.1-12.4); NEUTROPHILS ABSOLUTE AUTO 6.72 K/mm3 (1.96-9.15); NEUTROPHILS PERCENT AUTO 87 % (41-73); Platelet Count 182 K/mm3 (150-400); RDW Standard Deviation 45.5 fL (35.1-46.3); Red Blood Cell Count 3.88 M/mm3 (3.80-5.20); White Blood Cell Count 7.69 K/mm3 (4.00-11.30)
[2020-03-14 04:07] LABS: Anion Gap 6 mmol/L (6-16); Blood Urea Nitrogen 19 mg/dL (8-24); Bun/Creatinine Ratio 26.2 (12.0-20.0); CO2, Blood 25 mmol/L (21-32); Calcium, Blood 7.2 mg/dL (8.5-10.1); Chloride, Blood 110 mmol/L (98-108); Creatinine, Blood 0.73 mg/dL (0.40-1.00); Glomerular Filtration Rate >60 (60-); Glucose, Blood 159 mg/dL (70-99); Phosphorus, Blood 2.2 mg/dL (2.5-4.9); Potassium, Blood 3.8 mmol/L (3.5-5.5); Sodium, Blood 141 mmol/L (136-145)
--- NOTE | 2020-03-14 07:17 | NUR ---
SUMMARY PATIENT SLEEPING OFF AND ON T/O NIGHT. AIRVO IN PLACE 50L FIO2 89% PATIENT CONTINUES TO HAVE BIOX DROP TO LOW 80'S WITH ACTIVITY, WITH FAIRLY QUICK RECOVERY. PATIENT ASSISTING WITH REPOSITIONING IN BED T/O NIGHT. HARSH MOIST COUGH CONTINUES WITH NO SPUTUM. FREQUENT LOOSE BROWN STOOLS CONTINUES IMODIUM GIVEN ONCE DURING THE NIGHT.
--- NOTE | 2020-03-14 09:00 | NUR ---
ASSUMED CARE OF PT AT 0700. PT SLEEPING IN BED. SATS 89-90% ON 50L/89%. PT AWAKENS TO VOICE, ORIENTED X3. CIWA 0. PT HAD LARGE LIQUID STOOL; DARK GREEN. IMMODIUM GIVEN. PT ABLE TO USE BED TIMMONS. 2 PERSON ASSIST UP TO CHAIR. SATS DECREASED TO 80% W EXERTION. FIO2 INCREASED TEMP TO 93%, PT RECOVERED SATS BACK TO 88-90% WITHIN 5MIN OF REST. LUNGS ARE CLEAR T/O. PT HAS DRY/HARSH NON-PRODUCTIVE COUGH. PT DENIES C/O PAIN. PT UP IN CHAIR EATING BREAKFAST NOW. PT DESATURATES WITH EATING WELL DOWN TO 85%.
--- NOTE | 2020-03-14 12:09 | NUR ---
SATS STABLE 88-92% ON 50L/90%FIO2. PT W POOR APPETITE. REMAINS UP IN CHAIR WATCHING TV.
--- NOTE | 2020-03-14 13:39 | NUR ---
PT ASSISTED BACK TO BED, 2 SBA. SATS BRIEFLY DROPPED TO 80% DURING TRANSITION. PT STILL REQUIRES AIRVO 50L/90%FIO2 TO KEEP SATS 88%-92%. KPHOS 30MMOL STARTED
--- NOTE | 2020-03-14 18:37 | NUR ---
O2 REQUIREMENTS REMAIN THE SAME. GOOD U/O W LASIX. PT WATCHING TV W/O COMPLAINTS; DID STATE THAT SITTING IN THE CHAIR TODAY "REALLY WORE ME OUT".
--- NOTE | 2020-03-14 19:45 | NUR ---
SHIFT ASSESSMENT REPORT RECEIVED FROM CHER VELASQUEZ. PT A&OX4. CIWA SCORE CURRENTLY <4. SLEEPING UPON ASSESMENT, WAKES EASILY TO VERBAL STIMULI. NO COMPLAINTS AT THIS TIME, STATES HE IS READY TO GO HOME. VSS. WILL CONTINUE TO MONITOR.
--- NOTE | 2020-03-14 20:15 | NUR ---
SHIFT ASSESSMENT ASSUMED CARE OF PT @ 1900, REPORT RECV'D FROM EVA KWON. PT ALERT AND ORIENTED. SITTING UPRIGHT ON HER LEFT SIDE. ATTEMPTED TO MOVE THE BED INTO THE CHAIR POSITION, PT DID NOT TOLERATE DUE TO BEING EXTREMELY UNCOMFORTABLE. PT ADVISED OF THE NEED TO TAKE DEEP BREATHS, PT COMPLIED, WILL CONTINUE TO PRODUCT SAFETY TESTER PT WITH BREATHING DEEPLY. CURRENTLY ON AIRVO-50L/ 90% O2 WITH SATS RANGING FROM 88-94%. NSR c PVC'S ON THE MONITOR. BP STABLE. PT OFFERED FOOD/ DRINK, WAS NOT INTERESTED AT THIS TIME, STATED SHE WAS TIRED FROM BEING IN THE CHAIR.
[2020-03-15 03:56] LABS: Anion Gap 6 mmol/L (6-16); Blood Urea Nitrogen 17 mg/dL (8-24); Bun/Creatinine Ratio 23.4 (12.0-20.0); CO2, Blood 27 mmol/L (21-32); Calcium, Blood 7.1 mg/dL (8.5-10.1); Chloride, Blood 106 mmol/L (98-108); Creatinine, Blood 0.73 mg/dL (0.40-1.00); Glomerular Filtration Rate >60 (60-); Glucose, Blood 176 mg/dL (70-99); Phosphorus, Blood 2.5 mg/dL (2.5-4.9); Potassium, Blood 3.9 mmol/L (3.5-5.5); Sodium, Blood 139 mmol/L (136-145)
--- NOTE | 2020-03-15 05:42 | NUR ---
SHIFT SUMMARY PT ALERT, REMAINS ON AIRVO: 50L/ 90% c O2 SATS RANGING MID TO LOW 80'S UPON EXERTION DURING TURNS AND 88-94 AT REST. LS REMAIN DIMINISHED WITH FINE CRACKLES IN THE BASES. ONE SMALL LOOSE BOWEL MOVEMENT, TREATED WITH PRN ANTIDIARRHEAL. TEMP SERNA CATH PATENT, DRAINING TO GRAVITY. PT AFEBRILE T/O THE NIGHT. WILL CONTINUE TO MONITOR.
--- NOTE | 2020-03-15 08:43 | NUR ---
ASSUMED CARE OF PT AT 0700. PT AWAKE IN BED WATCHING TV. SATS 85-90% ON AIRVO AT 50L/90% FIO2. PT HAS FINE CRACKLES BILAT. PO LASIX GIVEN. PT STATES SHE DID NOT SLEEP WELL LAST NIGHT AND FEELS EXHAUSTED. PT DECLINES GETTING UP TO THE CHAIR AT THIS TIME. SATS ROUTINELY DIPING DOWN TO 85%. PT ENCOURAGED TO DEEP BREATH AND COUGH. FIO2 INCREASED TO 92%. PT PLACED IN HIGH FOWLERS FOR BREAKFAST. VERY POOR APPETITE. PO FLUID INTAKE HAS BEEN DOWN WELL. PT MAY REQUIRE BIPAP. WILL ENCOURAGE CHAIR LATER THIS AM USING LIFT TO CONSERVE PT'S ENERGY. PT DID NOT TOLERATE PRONE POSITION IN PAST BUT MAY ATTEMPT A MODIFIED PRONE TODAY IF SATS CONT TO FALL. DR LOZA IN UNIT; FULL UPDATE GIVEN. LASIX ORDERED; 20MG PO Q 6HRS.
--- NOTE | 2020-03-15 09:54 | NUR ---
PT INCONTINENT OF LIQUID STOOL. IMMODIUM GIVEN THIS AM. PT GIVEN BED BATH. PT ABLE TO ASSIST SOMEWHAT W TURNS. SATS DECREASED TO 85% W EXERTION. PT DECLINED TO BE PLACE UP TO CHAIR. HAITIAN YOGURT GIVEN PER PT REQUEST. DR LOZA AT BEDSIDE NOW.
--- NOTE | 2020-03-15 12:57 | NUR ---
PT IS IMPROVING SLIGHTLY FROM THIS AM. APPETITE HAS IMPROVED. O2 SATS AVERAGING >90% ON 50L/92%FIO2. PT PLACED IN CHAIR POSITION FOR LUNCH.
--- NOTE | 2020-03-15 18:20 | NUR ---
O2 SATS AVERAGING 90-93% ON AIRVO 50L/93%. AFEBRILE, BP, HEART RATE/RHYTHM STABLE. PT EATING LIGHT DINNER. PT DENIES COMPLAINTS, WATCHING GOLF ON TV.
--- NOTE | 2020-03-15 20:49 | NUR ---
SHIFT ASSESSMENT ASSUMED CARE OF PT @ 1900 FROM CHER VELASQUEZ. PT ALERT AND ORIENTED. SEEMS MORE ALERT THAN YESTERDAY. SITTING UPRIGHT IN BED c HER DINNER TRAY, PT DOES NOT SEEM INTERESTED IN EATING, STATED "THERE IS TOO MUCH FOOD". ATE A MINIMAL AMOUNT OF HER DINNER, MOSTLY JUST A FEW SMALL BITES OF ICE CREAM AND BERRIES. ASKED THE PT WHAT SHE PREFERS FOR DINNER, SHE DID NOT HAVE ANY SUGGESTIONS. PT TOLERATING WATER WELL. ON AIRVO @ 50L/ 91-93% c O2 SATS >88%, AVERAGING 90-92%. ON CASINO GAMING INSPECTOR, BP STABLE. SERNA CATH PATENT, DRAINING TO GRAVITY. PT HAS NO CONCERNS/ REQUESTS AT THIS TIME. WILL CONTINUE TO MONITOR.
[2020-03-16 03:55] LABS: Anion Gap 6 mmol/L (6-16); Blood Urea Nitrogen 22 mg/dL (8-24); CO2, Blood 30 mmol/L (21-32); Calcium, Blood 7.2 mg/dL (8.5-10.1); Chloride, Blood 102 mmol/L (98-108); Creatinine, Blood 0.79 mg/dL (0.40-1.00); Glomerular Filtration Rate >60 (60-); Glucose, Blood 176 mg/dL (70-99); Potassium, Blood 3.7 mmol/L (3.5-5.5); Sodium, Blood 138 mmol/L (136-145)
[2020-03-16 04:17] LABS: BASOPHILS ABSOLUTE AUTO 0.02 K/mm3 (0.00-0.23); BASOPHILS PERCENT AUTO 0 % (0-2); EOSINOPHILS PERCENT AUTO 0 % (0-6); Hematocrit 33.2 % (33.0-51.0); Hemoglobin 11.9 g/dL (11.5-16.0); Mean Corpuscular HGB 33.1 pg (26.0-34.0); Mean Corpuscular HGB Conc 35.8 g/dL (31.5-36.5); Mean Corpuscular Volume 92 fL (80-100); Mean Platelet Volume 10.2 fL (9.1-12.4); Platelet Count 208 K/mm3 (150-400); RDW Coefficient Variation 14.3 % (11.7-14.2); RDW Standard Deviation 44.8 fL (35.1-46.3); White Blood Cell Count 8.25 K/mm3 (4.00-11.30)
[2020-03-16 04:18] LABS: IMMATURE GRAN ABSOLUTE AUTO 0.22 K/mm3 (0.00-0.10); IMMATURE GRAN PERCENT AUTO 3 % (0-1); LYMPHOCYTES ABSOLUTE AUTO 0.67 K/mm3 (0.84-5.20); LYMPHOCYTES PERCENT AUTO 8 % (21-46); MONOCYTES ABSOLUTE AUTO 0.22 K/mm3 (0.16-1.47); MONOCYTES PERCENT AUTO 3 % (4-13); NEUTROPHILS ABSOLUTE AUTO 7.12 K/mm3 (1.96-9.15); NEUTROPHILS PERCENT AUTO 86 % (41-73)
--- NOTE | 2020-03-16 05:13 | NUR ---
SHIFT SUMMARY NO SIGNIFICANT CHANGES T/O THE NIGHT. PT REMAINS ON THE SAME SETTINGS ON THE AIRVO. SATS MAINTAINED 90-92%, EXCEPT DURING EXERTION WHILE TURNING WHEN THEY WOULD DROP TO THE MID 80'S. PT ABLE TO HELP WITH TURNS THIS AM, WHICH IS MUCH IMPROVED FROM THE PREVIOUS NIGHT/AM. WILL CONTINUE TO MONITOR.
--- NOTE | 2020-03-16 07:45 | NUR ---
ASSUMED CARE OF PT AT 0700. REPORT FROM MAINOR KWON. PT RESTING IN BED. A&OX 4. FOLLOWS SIMPLE COMMANDS. DENIES COMPLAINTS. STATES SHE IS FEELING BETTER. AIRVO IN PLACE, 50L FIO2 93%. O2 SATS MID 90'S WHEN AT REST. DECREASES TO MID 80'S c MINIMAL EXERTION. LUNGS CLEAR THROUGHOUT. NON PRODUCTIVE COUGH. PT P/W/D. BP STABLE. HR 100'S. SERNA IN PLACE, DRAINING CLEAR YELLOW URINE TO GRAVITY. PT ABLE TO SHIFT HIPS AND ASSIST c REPOSITIONING. DOES DESAT c EXERTION. POOR APPETITE. PT STATES SHE HAS NOT TOLERATED CHAIR PREVIOUSLY. WILL CONTINUE TO MONITOR.
--- NOTE | 2020-03-16 17:33 | NUR ---
SHIFT SUMMARY PT REMAINED ON AIRVO ENTIRE SHIFT, NO CHANGE IN SETTINGS, 50 L 92%. O2 SATS MID 90'S WHEN AT REST, DESAT TO HIGH 80'S c EXERTION. LUNGS DIMINISHED IN BASES. SPEAKING IN FULL SENTANCES. PT ABLE TO SHIFT HIPS AND ASSIST c REPOSITIONING. REDNESS NOTED TO PERIAREA, BARRIER CREAM APPLIED. NO BM THIS SHIFT, HELD IMODIUM. 1200 ML CLEAR YELLOW URINE OUT. SERNA PATENT, DRAINING TO GRAVITY. PT CONTINUES TO HAVE POOR APPETITE. ENCOURAGED PO INTAKE AND OFFER ALTERNATIVES. PT DECLINES MOST SUGGESTIONS. VSS. WILL CONTINUE TO MONITOR UNTIL REPORT TO ONCOMING NURSE.
--- NOTE | 2020-03-16 19:30 | NUR ---
ASSUMED CARE ASSUMED PT CARE. PT AWAKE AND ALERT SITTING UP WATCHING TV. ON HIGH FLOW N/C 55L, FIO2 93%. LUNG SOUNDS COARSE AND DIMINISHED. MAINTAINING SPO2 > 90%. PT REPOSITIONS SELF WITH ASSISTANCE. SERNA CATH DRAINING CLEAR YELLOW URINE. NO EDEMA NOTED TO LOWER EXTREMETIES.
[2020-03-17 04:34] LABS: Anion Gap 7 mmol/L (6-16); Blood Urea Nitrogen 27 mg/dL (8-24); Bun/Creatinine Ratio 34.3 (12.0-20.0); CO2, Blood 30 mmol/L (21-32); Calcium, Blood 7.4 mg/dL (8.5-10.1); Chloride, Blood 100 mmol/L (98-108); Creatinine, Blood 0.79 mg/dL (0.40-1.00); Glomerular Filtration Rate >60 (60-); Glucose, Blood 161 mg/dL (70-99); Magnesium, Blood 1.9 mg/dL (1.6-2.4); Phosphorus, Blood 3.3 mg/dL (2.5-4.9); Potassium, Blood 3.8 mmol/L (3.5-5.5); Sodium, Blood 137 mmol/L (136-145)
[2020-03-17 04:55] LABS: BASOPHILS ABSOLUTE AUTO 0.02 K/mm3 (0.00-0.23); BASOPHILS PERCENT AUTO 0 % (0-2); EOSINOPHILS ABSOLUTE AUTO 0.02 K/mm3 (0.00-0.68); EOSINOPHILS PERCENT AUTO 0 % (0-6); Hematocrit 33.2 % (33.0-51.0); Hemoglobin 12.4 g/dL (11.5-16.0); IMMATURE GRAN ABSOLUTE AUTO 0.29 K/mm3 (0.00-0.10); IMMATURE GRAN PERCENT AUTO 4 % (0-1); LYMPHOCYTES ABSOLUTE AUTO 0.49 K/mm3 (0.84-5.20); LYMPHOCYTES PERCENT AUTO 7 % (21-46); MONOCYTES ABSOLUTE AUTO 0.11 K/mm3 (0.16-1.47); MONOCYTES PERCENT AUTO 2 % (4-13); Mean Corpuscular HGB 35.8 pg (26.0-34.0); Mean Corpuscular HGB Conc 37.3 g/dL (31.5-36.5); Mean Corpuscular Volume 96 fL (80-100); Mean Platelet Volume 10.4 fL (9.1-12.4); NEUTROPHILS PERCENT AUTO 86 % (41-73); Platelet Count 226 K/mm3 (150-400); RDW Coefficient Variation 17.4 % (11.7-14.2); RDW Standard Deviation 45.1 fL (35.1-46.3); Red Blood Cell Count 3.46 M/mm3 (3.80-5.20); White Blood Cell Count 6.73 K/mm3 (4.00-11.30)
[2020-03-17 05:41] LABS: PCO2 Arterial 34.8 mmHg (35-45); PO2 Arterial 55.2 mmHg (80-100); pH Blood Arterial 7.54 (7.35-7.45)
--- NOTE | 2020-03-17 06:29 | NUR ---
PT REMAINS ON HIGH FLOW N/C. 55L FIO2 92%. PT SPO2 > 90%. PT'S SPO2 DECREASES TO 84-85% WITH ANY EXERTION BY PT. INCLUDING ASSIST WITH REPOSITION. PT. A&OX4. LUNG SOUNDS CLEAR BUT DIMINISHED. PT. TAKING MINIMAL SIPS OF WATER. SERNA CATH INTACT DRAINING CLEAR YELLOW URINE.
--- NOTE | 2020-03-17 08:30 | NUR ---
ASSUMED CARE OF PT AT 0700. REPORT FROM JAMES KWON. PT RESTING IN BED. A&O X4. FOLLOWS COMMANDS. ABLE TO ASSIST c TURNS AND ADL'S. AIRVO IN PLACE, 50L 92% FIO2. SATS MID 90'S, DESATS c EXERTION. PT ABLE TO SPEAK IN FULL SENTANCES. LUNGS DIMINISHED IN BASES. PT P/W/D. ABD ROUND, SOFT, NON TENDER. BT X 4. PT CONTINUES TO HAVE POOR APPETITE. ENCOURAGED PO INTAKE. SERNA IN PLACE, PATENT, DRAINING TO GRAVITY. LOOSE BM THIS AM IN BEDPAN. REDNESS TO PERIAREA. BARRIER CREAM APPLIED. POWERGLIDE TO RUE, DRESSING C/D/I. VSS. WILL CONTINUE TO MONITOR.
--- NOTE | 2020-03-17 17:36 | NUR ---
SHIFT SUMMARY PT REMAINS ON AIRVO ENTIRE SHIFT. ABLE TO TITRATE FIO2 TO 80%, 50L. O2 SATS REMAIN >95%. LUNGS CLEAR. DRY COUGH. PT CONTINUES TO BE A&OX 4. MG REPLACED THIS SHIFT. PLACED BED IN CHAIR POSITION, THIS IS WHEN SATS INCREASED AND FIO2 WAS TITRATED DOWN. BP STABLE. HR 90'S. SERNA PATENT AND DRAINING TO GRAVITY, 750 ML CLEAR YELLOW URINE OUT. LASIX D/C'D THIS SHIFT. AFEBRILE. WILL CONTINUE TO MONITOR UNTIL REPORT TO ONCOMING NURSE.
--- NOTE | 2020-03-17 19:27 | NUR ---
ASSUMED PT CARE PT SITTING UP IN BED WATCHING TV. A&OX4. REMAINS ON HIGHFLOW N/C 50 L, FIO2 80%. PT TO REMAIN 80% TONIGHT TILL AM 0700 TO TRY 70% FIO2 TOLERATED. LUNG SOUNDS CLEAR BUT DIMINISHED IN BASES. BOWEL TONED NORMAL THROUGHOUT. SERNA CATH IN PLACE, DRAINING CLEAR YELLOW URINE. NO SOB OR INCREASED WORK OF BREATHING AT THIS TIME.
[2020-03-18 04:16] LABS: Anion Gap 5 mmol/L (6-16); Blood Urea Nitrogen 32 mg/dL (8-24); Bun/Creatinine Ratio 41.8 (12.0-20.0); CO2, Blood 31 mmol/L (21-32); Calcium, Blood 7.6 mg/dL (8.5-10.1); Chloride, Blood 100 mmol/L (98-108); Creatinine, Blood 0.77 mg/dL (0.40-1.00); Glomerular Filtration Rate >60 (60-); Glucose, Blood 157 mg/dL (70-99); Potassium, Blood 3.7 mmol/L (3.5-5.5); Sodium, Blood 136 mmol/L (136-145)
[2020-03-18 04:42] LABS: BASOPHILS ABSOLUTE AUTO 0.01 K/mm3 (0.00-0.23); BASOPHILS PERCENT AUTO 0 % (0-2); EOSINOPHILS ABSOLUTE AUTO 0.03 K/mm3 (0.00-0.68); EOSINOPHILS PERCENT AUTO 1 % (0-6); Hematocrit 32.9 % (33.0-51.0); Hemoglobin 12.2 g/dL (11.5-16.0); IMMATURE GRAN ABSOLUTE AUTO 0.18 K/mm3 (0.00-0.10); IMMATURE GRAN PERCENT AUTO 3 % (0-1); LYMPHOCYTES ABSOLUTE AUTO 0.44 K/mm3 (0.84-5.20); LYMPHOCYTES PERCENT AUTO 7 % (21-46); MONOCYTES ABSOLUTE AUTO 0.15 K/mm3 (0.16-1.47); MONOCYTES PERCENT AUTO 2 % (4-13); Mean Corpuscular HGB 35.5 pg (26.0-34.0); Mean Corpuscular Volume 96 fL (80-100); Mean Platelet Volume 10.3 fL (9.1-12.4); NEUTROPHILS ABSOLUTE AUTO 5.55 K/mm3 (1.96-9.15); NEUTROPHILS PERCENT AUTO 87 % (41-73); Platelet Count 218 K/mm3 (150-400); RDW Coefficient Variation 16.3 % (11.7-14.2); RDW Standard Deviation 44.9 fL (35.1-46.3); Red Blood Cell Count 3.44 M/mm3 (3.80-5.20); White Blood Cell Count 6.36 K/mm3 (4.00-11.30)
[2020-03-18 04:43] LABS: Mean Corpuscular HGB Conc 37.1 g/dL (31.5-36.5)
[2020-03-18 05:21] LABS: PCO2 Arterial 38.4 mmHg (35-45); PO2 Arterial 58.6 mmHg (80-100); pH Blood Arterial 7.52 (7.35-7.45)
--- NOTE | 2020-03-18 05:43 | NUR ---
SHIFT SUMMARY PT CONTINUES ON HIGH FLOW NC. 50L AND 80% FIO2. PT. HAS TOLERATED WELL WITH 1 INCIDENCE OF LOW SPO2 TO 85% WITH REPOSITIONING. LUNG SOUNDS CLEAR AND DIMINISHED IN BASES. PT TAKING SMALL AMOUNTS OF PO FLUIDS. SERNA CATH DRAINING CLEAR YELLOW URINE. PT. DENIES PAIN OR DISCOMFORT. FIO2 TO DECREASE TO 70% AT 0700.
--- NOTE | 2020-03-18 06:50 | NUR ---
HIGH FLOW N/C FIO2 REDUCED TO 70% PER NURSE NOTIFY. PT SPO2 MAINTAINING > 90%. WORK OF BREATHING REMAINS UNCHANGED.
--- NOTE | 2020-03-18 07:16 | NUR ---
HIGH FLOW N/C REDUCED TO 70%, PT. UNABLE TO MAINTAIN SPO2> 80%. PT WORK OF BREATHING INCREASED. SPO2 INCREASED BACK TO 80%. PT SPO2 RETURNED TO > 90%.
--- NOTE | 2020-03-18 09:06 | NUR ---
Assumed care of pt at 0700. Bedside report received from Yannick KWON. Pt A&O x 4. Answers questions. Follows commands. Verbalizes needs. Pt on AirVO with 50 LPM flow and 80% FiO2. SpO2 90% or greater. Lungs coarse in all verduzco, diminished in bases. Dry, nonproductive cough. SR per monitor. BP stable. Stanton catheter in place for strict measurement of I&O. Pt incontinent of stool. Call light in reach. Pt denies need at this time.
--- NOTE | 2020-03-18 14:56 | NUR ---
Pt has been sitting up in chair since noon. At first, pt resistant to getting out of bed. At 1400, showed pt her SpO2 on the monitor, which was 97%. Pt excited and agreeable to staying sitting up in the chair. FiO2 on AIRVO decreased from 70% to 60%.
--- NOTE | 2020-03-18 19:28 | NUR ---
Pt back to bed, laying on stomach at this time. Per Dr Ye, pt to lay on stomach while sleeping as tolerated. Heart monitor stickers placed posteriorly for comfort while proning. Pt's bed rotated so she can easily see the television while proned. Pt's belongings in reach, as well as call light. AirVO settings 50 LPM flow and 50% FiO2. SpO2 90% or greater. SR per monitor. BP stable. Report given to Yannick KWON.
[2020-03-19 04:21] LABS: Anion Gap 7 mmol/L (6-16); Blood Urea Nitrogen 33 mg/dL (8-24); Bun/Creatinine Ratio 45.7 (12.0-20.0); CO2, Blood 29 mmol/L (21-32); Calcium, Blood 8.3 mg/dL (8.5-10.1); Chloride, Blood 100 mmol/L (98-108); Creatinine, Blood 0.72 mg/dL (0.40-1.00); Glomerular Filtration Rate >60 (60-); Glucose, Blood 136 mg/dL (70-99); Sodium, Blood 136 mmol/L (136-145)
[2020-03-19 04:41] LABS: BASOPHILS ABSOLUTE AUTO 0.02 K/mm3 (0.00-0.23); BASOPHILS PERCENT AUTO 0 % (0-2); EOSINOPHILS ABSOLUTE AUTO 0.06 K/mm3 (0.00-0.68); EOSINOPHILS PERCENT AUTO 1 % (0-6); Hematocrit 35.3 % (33.0-51.0); Hemoglobin 12.5 g/dL (11.5-16.0); IMMATURE GRAN ABSOLUTE AUTO 0.16 K/mm3 (0.00-0.10); IMMATURE GRAN PERCENT AUTO 2 % (0-1); LYMPHOCYTES ABSOLUTE AUTO 0.43 K/mm3 (0.84-5.20); LYMPHOCYTES PERCENT AUTO 5 % (21-46); MONOCYTES ABSOLUTE AUTO 0.19 K/mm3 (0.16-1.47); MONOCYTES PERCENT AUTO 2 % (4-13); Mean Corpuscular HGB 33.1 pg (26.0-34.0); Mean Corpuscular HGB Conc 35.4 g/dL (31.5-36.5); Mean Corpuscular Volume 93 fL (80-100); Mean Platelet Volume 10.1 fL (9.1-12.4); NEUTROPHILS ABSOLUTE AUTO 7.69 K/mm3 (1.96-9.15); NEUTROPHILS PERCENT AUTO 90 % (41-73); Platelet Count 236 K/mm3 (150-400); RDW Coefficient Variation 14.6 % (11.7-14.2); RDW Standard Deviation 44.7 fL (35.1-46.3); Red Blood Cell Count 3.78 M/mm3 (3.80-5.20); White Blood Cell Count 8.55 K/mm3 (4.00-11.30)
[2020-03-19 05:33] LABS: PCO2 Arterial 35.3 mmHg (35-45); PO2 Arterial 52.4 mmHg (80-100); pH Blood Arterial 7.54 (7.35-7.45)
--- NOTE | 2020-03-19 08:30 | NUR ---
ASSUMED CARE: REPORT RECEIVED FROM JAMES Cunningham RN. ASSUMED CARE OF THIS PT AT APPROX 0700. ON ASSESSMENT, THE PT IS RESTING QUIETLY. SHE IS REFUSING TO PRONE AT THIS TIME BUT O2 SATS IMPROVING W/ PT REPOSITIONED FAR ONTO R SIDE. LS ARE DIM IN BASES, PT ON AIRVO W/ SETTINGS: 50 L/MIN & 30% FIO2. MONITOR SHOWS SR W/ HR 80s, OCCASIONAL PVCs & PACs NOTED. BP STABLE. PT IS TOLERATING PO INTAKE WELL, CONTINUES HAVING LIQUID BROWN INCONTINENT STLS. TEMP SERNA PATENT/ DRAINING. SKIN CONDITION OVERALL CDI. WILL CONTINUE TO MONITOR & UPDATE NEEDED.
--- NOTE | 2020-03-19 11:10 | NUR ---
BED ASSIGNMENT: ROOM [id number] HAS BEEN ASSIGNED TO THIS PT FOR TX & THE PT IS AWARE OF THIS. REPORT HAS BEEN CALLED TO KOAML Caputo RN TO ASSUME CARE, AT 1105. ROOM IS CURRENTLY BEING CLEANED, SHE WILL NOTIFY THIS RN WHEN IT HAS BEEN COMPLETED & THE PT CAN BE TRANSFERRED.
--- NOTE | 2020-03-19 17:55 | NUR ---
SHIFT SUMMARY; ASSUMED CARE FROM ICU FOR INHOUSE TRANSFER. A/A/OX4, AIR VO AT 50L AT 40%. UP TO RECLINER FOR LUNCH WITH ASSISTANCE. PT EVAL TODAY, SERNA CATH IN PLACE DRAINING CLEAR YELLOW URINE. NO ACUTE CHANGES DURING SHIFT. WILL CONTINUE TO MONITOR AND TREAT UNTIL CHANGE OF SHIFT.
--- NOTE | 2020-03-20 04:27 | NUR ---
SHIFT SUMMARY PT A&Ox3 FOR MOST OF SHIFT. HAD SHORT EPISODE OF CONFUSION AT 0415. PULLED APART HI VIN O2 N/C, DESATED TO 72%. REPLACED HI VIN CANNULA QUICKLY AND SATS RETURNED TO 92%. CURRENT SETTINGS 45LPM, FIO2 48%. REORIENTED PT, SHORTNESS OF BREATH RESOLVED. OTHER THAN THIS EPISODE, PT HAD A RESTFUL NIGHT. REQUESTED PT TO PRONE EVERY 2 HRS, PT REFUSED EACH TIME. PT WOULD ONLY TURN ON RIGHT SIDE OR LEFT SIDE. DENIED CHEST PAIN, NO ACUTE ANXIETY. URINARY CATH PATENT WITH CLR YELLOW URINE. INCONT STOOL X3. PERIANAL AREA REMAINS EXCORIATED, CREAM APPLIED PRN. WILL CONTINUE TO MONITOR
--- NOTE | 2020-03-20 17:19 | NUR ---
SUMMARY PT SITTING UP IN BED WATCHING TV AND DRINKING COFFEE, PT HAS BEEN PLEASANT AND COOPERATIVE WITH CARE, FORGETFUL AT TIMES, REORIENTS EASILY, PT HAS WORKED WITH THERAPY AND WAS UP IN THE CHAIR, PT REMAINS ON THE AIRVO AT 45 LITERS AND 45% FIO2, NO COMPLAINTS, WILL CONT TO MONITOR
--- NOTE | 2020-03-20 21:12 | NUR ---
2002 74 Y/O FEMALE RESTING COMFORTABLY; DROPLET ISOLATION MAINTAINED FOR COVID19; HAPPY AND COOPERATIVE; DENIES PAIN OR NAUSEA; ALERT AND ORIENTED X 4.
--- NOTE | 2020-03-21 02:47 | NUR ---
SHIFT SUMMARY: 74 Y/O OBESE FEMALE RESTED COMFORTABLY LOW FOWLERS POSITION WHILE AIR FLOW AT 45% WITH O2 SATS AVERAGING 90%; DENIES PAIN OR NAUSEA; HAPPY AND COOPERATIVE; BED LOW POSITION WITH CALL LIGHT AT SIDE; TELEMETRY REFLECTS NSR PER JESUS--CORN CHIP MAKER; SERNA DRAINING CLEAR YELLOW FLUID; LUNG SOUNDS ARE DIMINISHED THROUGHOUT.
--- NOTE | 2020-03-21 11:02 | NUR ---
SPOKE WITH PT'S DAUGHTER PT CALLED DAUGHTER ANA THREATENING TO CALL PT ADVOCATE SHE FEELS THAT SHE IS BEING HELD AGAINST HER WILL. DAUGHTER EXPLAINED TO PT THAT SHE IS VERY SICK WHICH IS WHY SHE IS HOSPITALIZED. PT WAS CONFUSED WHEN THIS RN THIS AM FOR ASSESSMENT, ORIENTED TO PERSON AND PLACE ONLY
--- NOTE | 2020-03-21 18:18 | NUR ---
SHIFT NOTE PT HAS BEEN RESTING WELL ON AIRVO T/O THE SHIFT. REPORTS BREATHING HAS IMPROVED. DNEIES CP OR SOB THIS SHIFT. PT C/O "TAILBONE" PAIN WHICH WAS TREATED WITH TYLENOL. PT REMAINS SLIGHTLY CONFUSED BUT IS NOT IMPULSIVE. PT HAS CALLED DAUGHTER TODAY AND STATED THAT SHE WAS BEING HELD AGAINST HER WILL AND WANTED TO CALL THE PT ADVOCATE, DAUGHTER ENCOURAGED PT NOT TO CALL ADVOCATE AND REMINDED HER THAT SHE WAS NOT BEING HELD AGAINST HER WILL AND THAT SHE IS SICK. PT IS CALM AND COOPERATIVE AT THE TIME OF THIS NOTE AND IS ANSWERING QUESTIONS WELL, REMAINS A/O X2 AWARE OF PLACE AND SELF.
--- NOTE | 2020-03-22 05:39 | NUR ---
SHIFT SUMMARY NO ACUTE CHANGES THIS SHIFT. PT A&O X2. COULD STATE NAME, , AND WHERE SHE WAS. CONFUSED AT TIMES. VSS. SP02>90% ON 55L HEATED HUMID. HIFLOW NC, FI02 @ 45%. TELEMETRY READS WAP, HR 80'S-90'S. PT C/O OF SIATIC PAIN. MEDICATED PER EMAR. ENCOURAGED REPOSITIONING WITH NO SUCCESS. SERNA CATHETER DRAINING CLEAR YELLOW URINE. NO BM THIS SHIFT. POWERGLIDE FLUSHES NICELY, CAPS CHANGED THIS SHIFT. PT SLEPT T/O 2ND HALF OF SHIFT. CALL LIGHT IN REACH. WILL CONTINUE TO MONITOR.
--- NOTE | 2020-03-22 18:50 | NUR ---
SHIFT NOTE NO ACUTE CHANGES DURING THIS SHIFT. PT WAS REMOVED FROM AIRVO AND PLACED ON HIGH FLOW O2 AT 8L WHICH SHE IS TOLERATING WELL AT 92%. PT ALERT, CONFUSED. CONSULT HAS BEEN CALLED IN TO DR CHASE
--- NOTE | 2020-03-23 06:36 | NUR ---
SHIFT SUMMARY PATIENT ALERT AND ORIENTED. HAD NO COMPLAINTS OF PAIN OR SHORTNESS OF BREATH. PATIENT TITRATED DOWN FROM 8 TO 7 LITERS O2 VIA HIGH FLOW NASAL CANULA. PATIENT'S DAUGHTER CALLED AND REQUESTED TO SPEAK WITH A DELIVERY AGENT OR PHYSICIAN REGARDING THE PATIENT'S PROGNOSIS AND PLAN OF CARE LEADING TOWARDS DISCHARGE. IV PATENT AND FLUSHED. BED IN LOWEST POSITION WITH WHEELS LOCKED AND ALARM ON. CALL LIGHT WITHIN REACH. REPORT GIVEN TO ONCOMING RN.
--- NOTE | 2020-03-23 17:31 | NUR ---
SHIFT NOTE NO ACUTE CHANGES NOTED FOR THIS SHIFT. REPORTS BREATHING IS IMPROVING. REFUSES PRONING, REFUSES PT AND OT. PT APPEARS TO BE MORE ORIENTED TODAY. LS CLEAR AND DIM T/O. VSS. REMAINS ON 7L O2 VIA HIGH FLOW NC. ATTEMPTS WERE MADE BY THIS RN AND RT TO TITRATE O2 DOWN WITHOUT SUCCESS. DR CHASE WAS IN TO SEE PT TODAY, AFTER HIS ASSESSMENT HE SPOKE WITH MYSELF AND PT'S DAUGHTER, THE CONCLUSION WAS MADE BY DR CHAES THAT PT IS DEMENTED AND IS UNABLE TO MAKE HER OWN MEDICAL OR FINANCIAL DECISIONS, LUZ PEREZ IS SEEKING [employer] AT THIS TIME, SHE HAS PAPERWORK FOR [employer] SHE WILL BE CALLING ON THURSDAY TO SPEAK WITH SOCK MENDER FOR ASSISTANCE WITH PAPERWORK
--- NOTE | 2020-03-24 06:05 | NUR ---
SHIFT SUMMARY PT A&O TO SELF & FOLLOWING SOME INSTRUCTIONS, REQUIRING REMINDING/REDIRECTING AT TIMES. VSS. MONITOR SHOWS SR-ST, HR 90's-110. spo2 > 92% ON 7L HI-VIN NC. PT COCCYX & GROIN RED W/ 2 NOTED PRESSURE ULCERS TO COCCYX. WOUND PHOTOS TAKEN & PLACED IN CHART. Q2H REPOSITIONING PROVIDED. SERNA CATH PATENT & DRAINING.
--- NOTE | 2020-03-24 12:37 | NUR ---
AM ASSESSMENT PT IS A/O X2-3, STATE IMPROVED MENTATION, SHE DEMONSTRATES FORGETFULNESS, SEEMS INAJA. SHE STATE WEAKNESS/FATIGUE IMPROVING. COVID19+ SINCE 03/08/20, ID RN STATE PT WILL CONTINUE DROPLET ISO UNTIL 03/28/20, ISTRATE NOTIFIED. PHYTHER IN THIS AM, PT ASSISTED TO CHAIR FOR LUNCH, 1 ASSIST w FWW, GAIT STEADY. LUNGS CLEAR/DECREASED, SHE STATE NO SOB, O2 @ 7L HIFLO/HUMIDIFIED, BIOX 88-91%, RT GAVE NEB 0730. SERNA CATH CONTINUES, PATENT/DRNG CLEAR YELLOW URINE.
--- NOTE | 2020-03-24 16:02 | NUR ---
SUMMARY PT IS A/O X3 HOWEVER FORGETFUL, SHE HAD PSYCHE CONSULT YESTERDAY, DX DEMENTIA, DR SHELTON [address] [employer] PAPERS IN CHART. PT IS 15 DAYS POST COVID19+, SHE WILL CONTINUE IN DROPLET ISO UNTIL 03/24/20. PT STATE FEELING IMPROVED, STATE CONTINUING TIN CONTAINER STRAIGHTENER COUGH. DR YOUNGTRATE REQUEST TITRATE O2, RT ASSIST. PT TITRATED FROM 7L DOWN TO 4L, BIOX 93%, NO SOB @ REST. SHE HAS BEEN UP IN CHAIR w 1 ASSIST, HEALTH AND SAFETY DIRECTOR PROVIDE BEDBATH. VSS.
--- NOTE | 2020-03-24 18:56 | NUR ---
PT UP IN CHAIR FOR DINNER. BACK TO BED AFTER. CALL OR CONTACT CENTRE OPERATOR REPORT BIOX DROP TO 85%, O2 TITRATED UP TO 5L, 89% @ THIS TIME, PT STATE NO SOB, WILL MX.
--- NOTE | 2020-03-24 21:10 | NUR ---
CARE ASSUMPTION PT A&O X4, MORE INTERACTIVE THIS SHIFT. PT ANSWERING Q's MORE APPROPRIATELY DESPITE SOME CONFUSION SUCH PT REPORTING DATE TO BE "24 MARCH 1920" THEN LAUGHED & STATED "OH MY! 2019!" MONITOR SHOWS ST, HR 100-110. PT ON 5L NC W/ SPO2 IN GOAL RANGE OF 86-94% PER MD NURSE NOTIFY. PT DENIES SOB. WILL CONTINUE TO MONITOR & PROVIDE CARE.
[2020-03-25 04:53] LABS: BASOPHILS ABSOLUTE AUTO 0.02 K/mm3 (0.00-0.23); BASOPHILS PERCENT AUTO 0 % (0-2); EOSINOPHILS ABSOLUTE AUTO 0.07 K/mm3 (0.00-0.68); EOSINOPHILS PERCENT AUTO 1 % (0-6); Hematocrit 33.6 % (33.0-51.0); Hemoglobin 11.3 g/dL (11.5-16.0); IMMATURE GRAN ABSOLUTE AUTO 0.04 K/mm3 (0.00-0.10); IMMATURE GRAN PERCENT AUTO 1 % (0-1); LYMPHOCYTES ABSOLUTE AUTO 0.65 K/mm3 (0.84-5.20); LYMPHOCYTES PERCENT AUTO 11 % (21-46); MONOCYTES ABSOLUTE AUTO 0.25 K/mm3 (0.16-1.47); MONOCYTES PERCENT AUTO 4 % (4-13); Mean Corpuscular HGB Conc 33.6 g/dL (31.5-36.5); Mean Corpuscular Volume 92 fL (80-100); Mean Platelet Volume 9.9 fL (9.1-12.4); NEUTROPHILS ABSOLUTE AUTO 4.92 K/mm3 (1.96-9.15); NEUTROPHILS PERCENT AUTO 83 % (41-73); Platelet Count 162 K/mm3 (150-400); RDW Coefficient Variation 13.2 % (11.7-14.2); RDW Standard Deviation 43.5 fL (35.1-46.3); Red Blood Cell Count 3.64 M/mm3 (3.80-5.20); White Blood Cell Count 5.95 K/mm3 (4.00-11.30)
[2020-03-25 05:12] LABS: Anion Gap 5 mmol/L (6-16); Blood Urea Nitrogen 22 mg/dL (8-24); Bun/Creatinine Ratio 29.5 (12.0-20.0); CO2, Blood 26 mmol/L (21-32); Calcium, Blood 9.2 mg/dL (8.5-10.1); Chloride, Blood 107 mmol/L (98-108); Creatinine, Blood 0.75 mg/dL (0.40-1.00); Glomerular Filtration Rate >60 (60-); Glucose, Blood 101 mg/dL (70-99); Potassium, Blood 4.1 mmol/L (3.5-5.5); Sodium, Blood 138 mmol/L (136-145)
--- NOTE | 2020-03-25 06:10 | NUR ---
SHIFT SUMMARY PT CONTINUES TO BE A&O X4 W/ SOME FORGETFULNESS. MONITOR SHOWS SR-ST, HR 80's-110. PT ON 5L HI-VIN NC, TITRATED DOWN TO 4L THIS SHIFT W/ SPO2 IN GOAL RANGE OF 86-94% PER MD NURSE NOTIFY. PT COOPERATIVE W/ ALL CARE. PRESSURE ULCERS X2 NOTED TO COCCYX. PT REPOSITIONED Q2H.
--- NOTE | 2020-03-25 19:18 | NUR ---
SHIFT SUMMARY SHAMIR DENIED PAIN THIS SHIFT. UP WITH AO1 TO CHAIR/BSC. SERNA REMOVED AROUND 3PM, NO OUTPUT YET, PT DOESN'T FEEL URGE. REPORT TO NIGHT NURSE TO FOLLOW UP ON UO IN NEXT COUPLE HOURS. TELE DC'D. CONT PULSE OX SHOWS 88-92 ON 4L OXYGEN. AT ONE POINT HAD TO BUMP TO 8L WITH EXERTION OF GETTING UP TO CHAIR. RED RASH ON BACK AND BUTTOCKS, BENADRYL CREAM APPLIED AND STEROID CREAM ORDERED PER DR MYLES. NYSTATIN APPLIED TO YEAST UNDER ABD FOLDS. TOOK MEDS PRESCRIBED, WCTM
--- NOTE | 2020-03-26 04:35 | NUR ---
SHIFT SUMMARY PT IS ALERT AND ORIENTED, SHOWS MILD CONFUSION AT TIMES BUT IS OVERALL AAOX4. VITALS WERE STABLE WITH BP 103-117 SYSTOLIC, HR 80-90'S. PT ON 4LPM VIA NC AND RESTING WITH O2 SATS IN THE LOW 90'S AND LITTLE CHANGE WHEN PT MOVING AROUND IN BED. SKIN ON BACK SHOWED A RASH, PT STATSED NO DISCOMFORT, ORDERED MEDICATION WAS APPLIED. GRAHAM AREA BACK TO BUTTOCKS WAS REDDENED WITH PEELING SKIN, POWDER AND MEDICATION WAS APPLIED. PT OTHERWISE WAS PLEASENT AND COOPERATIVE WITH CARE WITH AN UNEVENTFUL NIGHT.
--- NOTE | 2020-03-26 17:31 | NUR ---
NO ACUTE EVENTS THIS SHIFT. PATIENT ABLE TO AMBULATE TO BEDSIDE COMMODE AND IN SHOWER WITH STANDBY ASSIST. PATIENT ON 4 L NASAL CANNULA, MAINTAINING O2 SATS IN LOW 90S, O2 LEVEL WILL DECREASE TO HIGH 80S WITH COUGHING FIT. PATIENT HAS RASH ON BACK AND BUTTOCKS, TRIAMCINOLONE AND BENADRYL APPLIED PER EMAR. PATIENT ENCOURAGED TO AMBULATE, ENCOURAGED TO REPOSITION SELF IN BED. NO SIGNS OF ACUTE DISTRESS.
--- NOTE | 2020-03-26 19:15 | NUR ---
OPENING NOTE RECEIVED BEDSIDE REPORT FROM AALIYAH KWON AND ASSUMED CARE. PT IS RESTING IN BED, WAVES AND SMILES AT INTRODUCTION. DENIES NEEDS OR COMPLAINTS AT THIS TIME. SATS ARE 93% ON CONTINUOUS BIOX, 4 L O2 VIA NC. PT IS MEDICAL NO TELE STATUS, WILL CONTINUE PLAN OF CARE AND WILL CONTINUE TO MONITOR.
--- NOTE | 2020-03-27 05:36 | NUR ---
DOPING SUPERVISOR SUMMARY NO ACUTE CHANGES THIS SHIFT. PT AAOX4 AND VERY PLEASANT. REMAINS ON 4L O2 VIA NC, O2 SATS LOW TO MID 90'S. APPLIED BENADRYL OINTMENT TO RASH ON BACK, PT REPORTED GOOD RELIEF OF ITCHING. PT HAS RESTED MOST OF THE SHIFT WITH NO COMPLAINTS. VSS, WILL CONTINUE TO MONITOR.
[2020-03-27 09:22] LABS: BASOPHILS ABSOLUTE AUTO 0.02 K/mm3 (0.00-0.23); BASOPHILS PERCENT AUTO 0 % (0-2); EOSINOPHILS ABSOLUTE AUTO 0.02 K/mm3 (0.00-0.68); EOSINOPHILS PERCENT AUTO 0 % (0-6); Hematocrit 30.5 % (33.0-51.0); Hemoglobin 10.5 g/dL (11.5-16.0); IMMATURE GRAN ABSOLUTE AUTO 0.02 K/mm3 (0.00-0.10); IMMATURE GRAN PERCENT AUTO 0 % (0-1); LYMPHOCYTES ABSOLUTE AUTO 0.78 K/mm3 (0.84-5.20); LYMPHOCYTES PERCENT AUTO 12 % (21-46); MONOCYTES ABSOLUTE AUTO 0.33 K/mm3 (0.16-1.47); MONOCYTES PERCENT AUTO 5 % (4-13); Mean Corpuscular HGB 32.5 pg (26.0-34.0); Mean Corpuscular HGB Conc 34.4 g/dL (31.5-36.5); Mean Corpuscular Volume 94 fL (80-100); Mean Platelet Volume 10.4 fL (9.1-12.4); NEUTROPHILS ABSOLUTE AUTO 5.29 K/mm3 (1.96-9.15); NEUTROPHILS PERCENT AUTO 82 % (41-73); Platelet Count 194 K/mm3 (150-400); RDW Coefficient Variation 13.2 % (11.7-14.2); RDW Standard Deviation 43.8 fL (35.1-46.3); Red Blood Cell Count 3.23 M/mm3 (3.80-5.20); White Blood Cell Count 6.46 K/mm3 (4.00-11.30)
[2020-03-27 09:37] LABS: Alanine Aminotransfer (ALT/SGP 109 U/L (12-78); Albumin, Blood 2.4 g/dL (3.4-5.0); Albumin/Globulin Ratio 0.6 (0.8-1.8); Alk Phos 65 U/L (50-136); Anion Gap 9 mmol/L (6-16); Aspartate Aminotrans (AST/SGOT 51 U/L (12-37); Bilirubin, Total 0.5 mg/dL (0.1-1.0); Blood Urea Nitrogen 21 mg/dL (8-24); Bun/Creatinine Ratio 27.7 (12.0-20.0); CO2, Blood 24 mmol/L (21-32); Calcium, Blood 9.6 mg/dL (8.5-10.1); Chloride, Blood 109 mmol/L (98-108); Creatinine, Blood 0.76 mg/dL (0.40-1.00); Globulin, Blood 3.9 g/dL (2.2-4.0); Glomerular Filtration Rate >60 (60-); Glucose, Blood 106 mg/dL (70-99); Potassium, Blood 4.6 mmol/L (3.5-5.5); Sodium, Blood 142 mmol/L (136-145); Total Protein, Blood 6.3 g/dL (6.4-8.2)
--- NOTE | 2020-03-27 18:05 | NUR ---
NO ACUTE EVENTS THIS SHIFT, VSS. PATIENT'S O2 SATS IMPROVING, UP TO 93% AND DOWN TO 3 L VIA NASAL CANNULA. PATIENT ABLE TO AMBULATE TO BEDSIDE COMMODE, WORKED WITH PT TODAY. PATIENT, PATIENT'S DAUGHTER, AND CASE MANAGEMENT MET TODAY FOR CONFERENCE REGARDING DISCHARGE DISPOSITION. PATIENT HAD ONE INCONTINENT BOWEL MOVEMENT TODAY.
--- NOTE | 2020-03-28 08:18 | NUR ---
SHIFT SUMMARY PT HAD A QUIET UNEVENTFUL NIGHT. VITALS WERE STABLE, O2 SATS STEADY IN THE LOW 90'S ON 4LPM VIA NC. PT IS INCONTINENT OF STOOL AND URINE. RASH AND SKIN ON BACK AND BUTTOCKS HAS PROGRESSED AND BECOME LARGER, SOME OF THE BLISTERS ARE NOW OPEN WITH NIMIMAL DRAINAGE. PICTURES UPDATED AND IN CHART. WILL CONTINUE TO MONITOR UNTIL SHIFT CHANGE.
--- NOTE | 2020-03-28 13:45 | NUR ---
TRANSFER PT TRANFERRED UP FROM PCU AROUND LUNCH TIME, PT ORIENTED TO ROOM AND CALL SYSTEM, PT DENIES ANY NEED AT THIS TIME, WILL CONT TO MONITOR
--- NOTE | 2020-03-28 17:34 | NUR ---
SUMMARY PT SITTING UP IN BED WATCHING TV, PT HAS BEEN PLEASANT AND COOPERATIVE WITH CARE, PT UP TO THE COMMODE WITH 1P ASSIST, PT HAS WORKED WITH THERAPY TODAY, PLAN IS TO DC TO SNF SOON, CREAM APPLIED TO GRAHAM AREA FOR EXCORIATED SKIN, PT REMAINS ON 3L O2, VSS, WILL CONT TO MONITOR
[2020-03-29] MEDS ORDERED: GABA300 PO (05:07)
[2020-03-29 05:15] LABS: BASOPHILS ABSOLUTE AUTO 0.01 K/mm3 (0.00-0.23); BASOPHILS PERCENT AUTO 0 % (0-2); EOSINOPHILS ABSOLUTE AUTO 0.03 K/mm3 (0.00-0.68); EOSINOPHILS PERCENT AUTO 1 % (0-6); Hematocrit 32.5 % (33.0-51.0); Hemoglobin 10.8 g/dL (11.5-16.0); IMMATURE GRAN ABSOLUTE AUTO 0.05 K/mm3 (0.00-0.10); IMMATURE GRAN PERCENT AUTO 1 % (0-1); LYMPHOCYTES ABSOLUTE AUTO 0.98 K/mm3 (0.84-5.20); LYMPHOCYTES PERCENT AUTO 18 % (21-46); MONOCYTES ABSOLUTE AUTO 0.31 K/mm3 (0.16-1.47); MONOCYTES PERCENT AUTO 6 % (4-13); Mean Corpuscular HGB 30.7 pg (26.0-34.0); Mean Corpuscular HGB Conc 33.2 g/dL (31.5-36.5); Mean Corpuscular Volume 92 fL (80-100); Mean Platelet Volume 10.3 fL (9.1-12.4); NEUTROPHILS ABSOLUTE AUTO 3.99 K/mm3 (1.96-9.15); NEUTROPHILS PERCENT AUTO 74 % (41-73); Platelet Count 196 K/mm3 (150-400); RDW Coefficient Variation 13.2 % (11.7-14.2); RDW Standard Deviation 43.4 fL (35.1-46.3); Red Blood Cell Count 3.52 M/mm3 (3.80-5.20); White Blood Cell Count 5.37 K/mm3 (4.00-11.30)
--- NOTE | 2020-03-29 05:31 | NUR ---
PT retired from [email or web address] after 26 years covid 19 positive weaned to 2 l nc high flow. PT was PCU transfer during day. Poor oral intake but says good appetite. Void x 1 liana urine. PT continent of B & B. had 3 stools yesterday per PT report. Immodium x 1 given. Using k pad for back pain with reported helpful effect. PT forgetful, lives alone , has some family in area. Weak & has dyspnea with exertion. Skin care to denuded areas , rash & fungal infection. Planning to dc to SNF for rehab.
--- NOTE | 2020-03-29 16:57 | NUR ---
TRANSFER NOTE PATIENT ALERT TO SELF, LOCATION, AND SITUATION THIS SHIFT. PATIENT TRANSFERED TO ROOM 342. PATIENT USES THE CALL LIGHT APPROPRIATELY AND RESPONDS APPROPRIATELY TO STAFF. PATIENT IS COOPERATIVE WITH CARE. PATIENT IS A 1 PERSON ASSIST WITH FWW TO THE BEDSIDE COMODE. PATIENT HAS REMAINED IN BED THROUGHOUT THIS SHIFT WHEN NOT ON THE COMODE. PATIENT WORKED WITH PT THIS SHIFT. PATIENT STATES LOWER BACK PAIN, WHICH IS RELIEVED WITH HEATING PAD. MEDICATION APPLIED TO EXCORIATED BACK, BUTTOX, AND LEGS PER EMAR. PATIENT DENIES ADDITIONAL NEEDS. REPORT GIVEN TO THA Mcknight
--- NOTE | 2020-03-29 17:57 | NUR ---
RECEIVED PATIENT AROUND 1645 FROM COVID UNIT TO RM 342. ALERT TO SELF, WHY SHE IS HERE. PLEASANT. HAS KPAD FOR BACK PAIN. MULTIPLE SORES TO BUTTOCK. ONE PERSON ASSIST/STANDBY TO BSC. LUNGS DIM LLL; OTHERWISE, CLEAR T/O.AWARE WILL NEED TO SOME SORT OF ASSIST LIVING. UNLABORED RESPIRATIONS. WCTM
--- NOTE | 2020-03-30 08:21 | NUR ---
HOT AIR FURNACE INSTALLER AND REPAIRER SUMMARY Patient quiet all night. 02 remains greater than 93% on 0-2 liters all night. A&O X3 WITH SHORT TERM MEMORY DEFICITS. Rash on back and bottom appear unchanged. Kenalog ointment applied to all irritated areas. Patient states no pain at all. only itching. Benedryl cream applied to arms and neck
--- NOTE | 2020-03-30 16:19 | NUR ---
SHIFT SUMMARY PT A/O X3 WITH SOME FORGETFULNESS. SHE PLEASANT, COOPERATIVE AND HAS BEEN RESTING FOR MOST OF THE DAY. SHE WORKED WITH P.T. TODAY. C/O OF ITCHING PERIODICALLY. BENEDRYL APPLIED TO AFFECTED AREAS. PEELING SKIN RASH ON BUTTOCKS AND GROIN AREA. MEDICATED PER EMR. VSS; RESTING COMFORTABLLY IN BED WITH CALL LIGHT IN REACH.
--- NOTE | 2020-03-31 05:02 | NUR ---
SUPERVISOR COMMISSARY PRODUCTION SUMMARY A/OX3, APPEARED TO SLEEP T/O SHIFT. UP TO BSC WITH 1 ASSIST AND FWW. DENIES PAIN OR SOB, 1L VIA NC FOR COMFORT. NO ACUTE NEEDS AT THIS TIME. BED IN LOWEST POSITION WITH CALL LIGHT IN REACH. WILL CONTINUE TO MONITOR AND REPORT TO ONCOMING RN.
--- NOTE | 2020-03-31 18:39 | NUR ---
SHIFT SUMMARY SHAMIR DENIED PAIN THIS SHIFT. DAUGHTER VISITED. UP TO BSC WITH AO1 AND CALLED APPROPRIATELY. ON 2L OXYGEN AND SATS WELL. TOOK MEDS PRESCRIBED. CALL LIGHT IN REACH, WCTM
--- NOTE | 2020-04-01 04:51 | NUR ---
ENVIRONMENTAL ENGINEERING INTERN SUMMARY A/OX3, APPEARED TO SLEEP T/O SHIFT. DENIES PAIN OR SOB. CURRENTLY ON 2L VIA NC FOR COMFORT. SBA TO BATHROOM WITH FWW. NO ACUTE CHANGES AT THIS TIME. BED IN LOWEST POSITION WITH CALL LIGHT IN REACH. WILL CONTINUE TO MONITOR AND REPORT TO ONCOMING RN.
--- NOTE | 2020-04-01 18:35 | NUR ---
SHIFT SUMMARY SHAMIR WAS PLEASANT AND COOPERATIVE THIS SHIFT. UP TO CHAIR FOR MEALS. WALKED AROUND HALLWAY WITH WALKER AND SBA. HAD BM THIS SHIFT. RASH ON BACK IS BETTER BUT GRAHAM-RECTAL AREA IS VERY EXCORIATED AND OPEN BLISTERS ON BUTTOCKS ARE PAINFUL FOR HER. ATTEMPTED TO WEAN DOWN TO ROOM AIR (BASELINE), AND HER SATS MAINTAIN AT 90-91% ON ROOM AIR IN BED, BUT WITH AMBULATION SHE DESATS TO MID-80S AND GETS SHORT OF BREATHE, PUT BACK ON 2L. WILL LIKELY NEED HOME OXYGEN EVAL PRIOR TO DISCHARGE. CALL LIGHT IN REACH, [facility]
--- NOTE | 2020-04-01 22:06 | NUR ---
74 Y/O FEMALE RESTING COMFORTABLY IN BED; CHEERFUL; DENIES PAIN OR NAUSEA; ALERT AND ORIENTED X 4; BED ALARM APPLIED FOR SAFETY.
--- NOTE | 2020-04-02 03:14 | NUR ---
SHIFT SUMMARY: 74 Y/O FEMALE RESTED COMFORTABLY ALL SHIFT; PT DENIES PAIN OR NAUSEA; PTS GROIN AND BUTTOCKS CONTINUE TO BE RED AND EXCORIATED WITH CREAM AND NYSTATIN CREAM APPLIED TO AREAS; WEARING O2 AT 2L/M PER NASAL CANNULA; HAPPY AND COOPERATIVE; ABLE TO AMBULATE BATHROOM AND BACK VIA WALKER X 1 STANDBY ASSIST; BED ALARM APPLIED FOR SAFETY, BED LOW POSITION WITH CALL LIGHT AT SIDE; ALERT AND ORIENTED X 4.
--- NOTE | 2020-04-02 17:02 | NUR ---
SUMMARY PT RESTING QUIETLY IN BED, WAKES EASILY, PT HAS BEEN PLEASANT AND COOPERATIVE WITH CARE, USES THE CALL LIGHT APPROPRIATELY, UP WITH 1P ASSIST, WORKED WITH PT/OT TODAY, PLAN IS STILL TO GO TO SNF, POSSIBLY TOMORROW, VSS, WILL CONTINUE TO MONITOR
--- NOTE | 2020-04-03 05:36 | NUR ---
SHIFT SUMMARY- PT. HAD NO ACUTE CHANGES OVERNIGHT. ASLEEP MOST OF THE NIGHT, NO APPARENT DISTRESS NOTED. PT. CALLS APPROPRIATELY, DENIED NEEDS T/O THE NIGHT. VSS. CALL LIGHT WITHIN REACH AND SIDE RAILS UPX2. WILL CONT TO MONITOR.
[2020-04-03 06:04] LABS: BASOPHILS ABSOLUTE AUTO 0.02 K/mm3 (0.00-0.23); BASOPHILS PERCENT AUTO 1 % (0-2); EOSINOPHILS ABSOLUTE AUTO 0.35 K/mm3 (0.00-0.68); EOSINOPHILS PERCENT AUTO 8 % (0-6); Hematocrit 35.9 % (33.0-51.0); Hemoglobin 11.5 g/dL (11.5-16.0); IMMATURE GRAN ABSOLUTE AUTO 0.08 K/mm3 (0.00-0.10); IMMATURE GRAN PERCENT AUTO 2 % (0-1); LYMPHOCYTES ABSOLUTE AUTO 0.88 K/mm3 (0.84-5.20); LYMPHOCYTES PERCENT AUTO 20 % (21-46); MONOCYTES PERCENT AUTO 9 % (4-13); Mean Corpuscular HGB 29.3 pg (26.0-34.0); Mean Corpuscular Volume 92 fL (80-100); Mean Platelet Volume 9.8 fL (9.1-12.4); NEUTROPHILS ABSOLUTE AUTO 2.66 K/mm3 (1.96-9.15); NEUTROPHILS PERCENT AUTO 61 % (41-73); Platelet Count 236 K/mm3 (150-400); RDW Coefficient Variation 13.5 % (11.7-14.2); RDW Standard Deviation 44.5 fL (35.1-46.3); Red Blood Cell Count 3.92 M/mm3 (3.80-5.20); White Blood Cell Count 4.39 K/mm3 (4.00-11.30)
[2020-04-03 06:16] LABS: Anion Gap 4 mmol/L (6-16); Blood Urea Nitrogen 19 mg/dL (8-24); Bun/Creatinine Ratio 21.9 (12.0-20.0); CO2, Blood 27 mmol/L (21-32); Chloride, Blood 109 mmol/L (98-108); Creatinine, Blood 0.87 mg/dL (0.40-1.00); Glomerular Filtration Rate >60 (60-); Glucose, Blood 93 mg/dL (70-99); Potassium, Blood 3.7 mmol/L (3.5-5.5); Sodium, Blood 140 mmol/L (136-145)
[2020-04-03 10:32] LABS: Alanine Aminotransfer (ALT/SGP 33 U/L (12-78); Albumin, Blood 2.4 g/dL (3.4-5.0); Albumin/Globulin Ratio 0.6 (0.8-1.8); Alk Phos 67 U/L (50-136); Aspartate Aminotrans (AST/SGOT 19 U/L (12-37); Bilirubin, Direct <0.1 mg/dL (0.0-0.3); Bilirubin, Indirect Unable to Calculate mg/dL (0.1-0.7); Bilirubin, Total 0.5 mg/dL (0.1-1.0); Globulin, Blood 3.7 g/dL (2.2-4.0); Total Protein, Blood 6.1 g/dL (6.4-8.2)
[2020-04-03] MEDS ORDERED: DECADRON6 MG PO (11:27)
[2020-04-03] MEDS ORDERED: Norco 5-325 Ta1 EACH PO (11:28)
[2020-04-03] MEDS ORDERED: METO10 PO (11:29)
[2020-04-03] MEDS ORDERED: OLAN10 PO (11:31)
[2020-04-03] MEDS ORDERED: NYSTATIN100000 UN1 PO (11:31)
[2020-04-03] MEDS ORDERED: ONDA4 PO (11:32)
[2020-04-03] MEDS ORDERED: ACET325 PO (11:34)
[2020-04-03] MEDS ORDERED: ZOLP5 PO (11:34)
[2020-04-03] MEDS ORDERED: CITA20 PO (11:35)
[2020-04-03] MEDS ORDERED: MELATONIN5 M1 PO (11:36)
[2020-04-03] MEDS ORDERED: Benadryl Itch28.3 G1 TOP (11:36)
[2020-04-03] MEDS ORDERED: Triamcinolone A15 G3 TOP (11:37)
--- NOTE | 2020-04-03 12:14 | NUR ---
DISCHARGE ATTEMPT TO CALL REPORT, SPOKE WITH LINDSAY AT [facility], THE NURSE WILL CALL BACK
--- NOTE | 2020-04-03 12:23 | NUR ---
SUMMARY/DISCHARGE RE[facility], PT TAKEN OVER VIA WHEELCHAIR
== END 2020-04-03 12:07 | DRG 871 ==
LOC: ER 19:30 → MEDS 19:31 → ER 19:31 → MEDS 19:31 → ER 03-09 00:30 → MEDS 03-09 00:31 → PCU 03-10 17:03 → MEDS 03-10 17:03 → ICUE 03-11 10:09 → PCU 03-19 12:22 → MEDS 03-28 12:03
PROVIDERS: Emergency Medicine; Family Medicine; Internal Medicine; Internal Medicine Critical Care Medicine; Internal Medicine Pulmonary Disease; ADMIT Internal Medicine
PROC: 3E0333Z Introduction of Anti-inflammatory into Peripheral Vein, Percutaneous Approach (ICD-10-PCS; principal; 2020-03-10)
PROC: XW033E5 Introduction of Remdesivir Anti-infective into Peripheral Vein, Percutaneous Approach, New Technology Group 5 (ICD-10-PCS; 2020-03-10)
DX: A41.89 Other specified sepsis (principal); G92 Toxic encephalopathy; J12.89 Other viral pneumonia; J96.01 Acute respiratory failure with hypoxia; U07.1 COVID-19; A09 Infectious gastroenteritis and colitis, unspecified; N17.9 Acute kidney failure, unspecified; B96.20 Unspecified Escherichia coli [E. coli] as the cause of diseases classified elsewhere; F17.210 Nicotine dependence, cigarettes, uncomplicated; C50.919 Malignant neoplasm of unspecified site of unspecified female breast; D69.6 Thrombocytopenia, unspecified; E86.0 Dehydration; I10 Essential (primary) hypertension; J43.9 Emphysema, unspecified; L89.329 Pressure ulcer of left buttock, unspecified stage; L89.319 Pressure ulcer of right buttock, unspecified stage; E66.9 Obesity, unspecified; F03.90 Unspecified dementia, unspecified severity, without behavioral disturbance, psychotic disturbance, mood disturbance, and anxiety; G47.00 Insomnia, unspecified; R21 Rash and other nonspecific skin eruption
CPT/HCPCS: 0097U; 0202U; 36415; 36600; 51703; 70450; 71045; 71260; 74177; 80048; 80053; 80076; 81001; 82330; 82803; 82947; 83735; 84100; 84145; 85025; 85379; 85651; 86140; 87040; 94640; 94760; 94761; 94762; 96360; 96361; 96372; 96374; 96375; 96376; 97110; 97116; 97162; 97530; 97530-CQ; 99285-25; A9270; A9270-GY; C1751; G0378; J1100; J1650; J1885; J1940; J2543; J3411; J3475; J7030; J7042; J7050; J7060; Q9967

== ENCOUNTER → 2020-05-15 | Outpatient (CLI) | payer MEDICARE, OTHER ==
[~2020-05-15] MED LIST changes: +ACET325 PO; +Benadryl Itch28.3 G1 TOP; +CITA20 PO; +DECADRON6 MG PO; +GABA300 PO; +LETR2.5 PO; +MELATONIN5 M1 PO; +NYSTATIN100000 UN1 PO; +Norco 5-325 Ta1 EACH PO; +ONDA4 PO; +Triamcinolone A15 G3 TOP
[2020-05-15 19:42] LABS: BASOPHILS ABSOLUTE AUTO 0.06 K/mm3 (0.00-0.23); BASOPHILS PERCENT AUTO 1 % (0-2); EOSINOPHILS ABSOLUTE AUTO 0.24 K/mm3 (0.00-0.68); EOSINOPHILS PERCENT AUTO 4 % (0-6); Hematocrit 33.5 % (33.0-51.0); Hemoglobin 10.3 g/dL (11.5-16.0); IMMATURE GRAN ABSOLUTE AUTO 0.01 K/mm3 (0.00-0.10); IMMATURE GRAN PERCENT AUTO 0 % (0-1); LYMPHOCYTES ABSOLUTE AUTO 2.34 K/mm3 (0.84-5.20); LYMPHOCYTES PERCENT AUTO 35 % (21-46); MONOCYTES ABSOLUTE AUTO 0.44 K/mm3 (0.16-1.47); MONOCYTES PERCENT AUTO 7 % (4-13); Mean Corpuscular HGB Conc 30.7 g/dL (31.5-36.5); Mean Corpuscular Volume 88 fL (80-100); Mean Platelet Volume 10.2 fL (9.1-12.4); NEUTROPHILS ABSOLUTE AUTO 3.63 K/mm3 (1.96-9.15); NEUTROPHILS PERCENT AUTO 54 % (41-73); Platelet Count 225 K/mm3 (150-400); RDW Coefficient Variation 15.6 % (11.7-14.2); RDW Standard Deviation 50.3 fL (35.1-46.3); Red Blood Cell Count 3.81 M/mm3 (3.80-5.20); White Blood Cell Count 6.72 K/mm3 (4.00-11.30)
[2020-05-15 20:05] LABS: Anion Gap 8 mmol/L (6-16); Blood Urea Nitrogen 12 mg/dL (8-24); CO2, Blood 26 mmol/L (21-32); Calcium, Blood 10.1 mg/dL (8.5-10.1); Chloride, Blood 102 mmol/L (98-108); Creatinine, Blood 0.86 mg/dL (0.40-1.00); Glomerular Filtration Rate >60 (60-); Glucose, Blood 119 mg/dL (70-99); Potassium, Blood 3.6 mmol/L (3.5-5.5); Sodium, Blood 136 mmol/L (136-145)
[2020-05-16 10:42] LABS: Bilirubin, Urine Neg (Neg); Blood, Urine 1+ (Neg); Glucose Qualitative, Urine Neg (Neg); Ketones, Urine 1+ (Neg); Leukocyte Esterase, Urine 2+ (Neg); Nitrite, Urine Neg (Neg); Protein, Urine 1+ (Neg); Urobilinogen, Urine NORM (Normal)
[2020-05-16 10:52] LABS: Appearance, Urine Hazy (Clear); Bacteria Few /hpf; Color, Urine Yellow (P-Yellow); Red Blood Cells, Urine 0-2 /hpf (0-2); Squamous Epithelial Cells Few /hpf (Few)
== END | disposition home or self-care (01) ==
LOC: LAB 18:47 → LAB SHORT 18:47
PROVIDERS: Nurse Practitioner Family
DX: I95.9 Hypotension, unspecified (principal); R42 Dizziness and giddiness; R53.83 Other fatigue
CPT/HCPCS: 80048; 81001; 85025; 87086